=== PATIENT | male | born 1970 | race American Indian/Alaskan Native ===

== ENCOUNTER 2019-04-29 06:37 | Inpatient (IN) | payer BC, OTHER ==
[2019-04-29] MEDS ORDERED: HEPARIN 10,000 UNITS/10 ML IV ONE (06:46)
[2019-04-29] MEDS ORDERED: NACL 0.9% 1000 ML 1,000 ML IV ONE (06:46)
--- NOTE | 2019-04-29 06:52 | Emergency Department Report ---
HPI - General Time Seen by Provider: 04/29/19 06:43 - HPI HPI: 49-year-old -Irish male presents to the emergency department by EMS from home with complaint of midsternal to left-sided chest pain that started about 3 AM this morning and has been going on since. There is some mild shortness of breath, as well as nausea and vomiting, associated with his chest pain. The patient has a past medical history of coronary artery disease with previous IA and 2 stents placed. The most recent stent was placed in [place] in February of this year. He has a card that shows a stent placed in the LAD and the RCA. He also has a past medical history of hypertension and diabetes. He is a tobacco smoker but denies any illicit drug use. The patient received a full dose aspirin, sublingual nitroglycerin and a dose of morphine in route with EMS without much relief. A code STEMI has been called. ED Review of Systems ROS: Stated complaint: CHEST PAIN Other details as noted in HPI Comment: All other systems reviewed and negative Constitutional: denies: chills, fever Eyes: denies: eye pain, vision change ENT: denies: ear pain, throat pain Respiratory: shortness of breath. denies: cough Cardiovascular: chest pain. denies: edema Gastrointestinal: nausea, vomiting. denies: abdominal pain Genitourinary: denies: dysuria, discharge Musculoskeletal: denies: back pain, arthralgia Skin: denies: rash, lesions Neurological: denies: headache, weakness Physical Exam - Physical Exam Physical Exam: GENERAL: Patient appears uncomfortable and diaphoretic. HENT: Normocephalic. Atraumatic. Patient has moist mucous membranes. EYES: Extraocular motions are intact. Pupils equal reactive to light bilaterally. NECK: Supple. Trachea is midline. CHEST/LUNGS: Clear to auscultation. There is no respiratory distress noted. HEART/CARDIOVASCULAR: Regular. There is no tachycardia. There is no murmur. ABDOMEN: Abdomen is soft, nontender. Patient has normal bowel sounds. There is no abdominal distention. SKIN: Skin is warm. Patient is diaphoretic. NEURO: The patient is awake, alert, and oriented. The patient is cooperative. The patient has no focal neurologic deficits. The patient has normal speech. MUSCULOSKELETAL: There is no tenderness or deformity. There is no evidence of acute injury. ED Course - Consultations Consultation #1: The dull coat mill operator on-call, Dr. Rizo, has been notified and has seen the EKG. He agrees with the code STEMI and is on his way in to meet the cath team. 04/29/19 06:51 ED Medical Decision Making - Lab Data Result diagrams: 04/29/19 06:50 04/29/19 06:50 - EKG Data -: EKG Interpreted by Me EKG shows normal: sinus rhythm, axis (left axis deviation), intervals, QRS complexes (right bundle-branch block), ST-T waves (there is ST elevation to need to V2 and V3 with ST depressions in 2, 3, aVF) Rate: bradycardia (49 bpm) - EKG Data When compared to previous EKG there are: previous EKG unavailable Interpretation: acute IA - Radiology Data Radiology results: image reviewed interpreted by me: Chest x-ray does not show any acute process. There are no pleural effusions, obvious pneumonia and there is no pneumothorax. - Medical Decision Making Patient presents with some acute midsternal to left-sided chest pain. EKG showed concern for anterior ST elevation IA. Code STEMI call. Cardiology was contacted and came in for catheterization. In reviewing the patient's labs, he had some hyperglycemia but otherwise the labs have been unremarkable thus far. Chest x-ray did not show any acute process. The patient had multivessel disease with balloon angioplasty completed and will be admitted to the ICU to the medicine service. - Differential Diagnosis STEMI, PE, pneumonia, costochondritis Critical Care Time: Yes Critical care time in (mins) excluding proc time.: 31 Critical care attestation.: If time is entered above; I have spent that time in minutes in the direct care of this critically ill patient, excluding procedure time. Critical care time was spent on this patient during his initial evaluation, multiple re- evaluations, discussion with the cardiology service, interpretation of EKG, ordering of medications. Critical Care Time: 31 minutes ED Disposition Clinical Impression: Hyperglycemia Acute myocardial infarction Qualifiers: Myocardial infarction type: ST elevation myocardial infarction Involved coronary artery: unspecified coronary artery Qualified Code(s): I21.3 - ST elevation (STEMI) myocardial infarction of unspecified site STEMI (ST elevation myocardial infarction) Qualifiers: Involved coronary artery: unspecified coronary artery Qualified Code(s): I21.3 - ST elevation (STEMI) myocardial infarction of unspecified site Disposition: DC-09 OP ADMIT IP TO THIS HOSP Is pt being admited?: Yes Condition: Serious Time of Disposition: 07:30
[2019-04-29] MEDS ORDERED: HEPARIN/ 0.45% NACL-25,000 UNIT/500 ML 25,000 UNIT/500 ML BAG IV SCH (07:00)
[2019-04-29 07:05] LABS: Basophils # (Auto) 0.1 K/mm3 (0.0-0.1); Basophils % (Auto) 0.5 % (0.0-1.8); Eosinophils # (Auto) 0.2 K/mm3 (0.0-0.4); Eosinophils % (Auto) 1.7 % (0.0-4.3); Hematocrit 38.7 % (35.5-45.6); Hemoglobin 12.6 gm/dl (11.8-15.2); Lymphocytes # (Auto) 3.8 K/mm3 (1.2-5.4); Lymphocytes % (Auto) 26.7 % (13.4-35.0); Mean Corpuscular HGB Conc 33 % (32-34); Mean Corpuscular Volume 88 fl (84-94); Monocytes # (Auto) 0.5 K/mm3 (0.0-0.8); Monocytes % (Auto) 3.2 % (0.0-7.3); Platelet Count 230 K/mm3 (140-440); Red Blood Count 4.38 M/mm3 (3.65-5.03); Red Cell Distribution Width 13.7 % (13.2-15.2)
[2019-04-29 07:16] LABS: INR 1.07 (0.87-1.13)
[2019-04-29 07:17] LABS: Partial Thromboplastin Time 24.1 Sec. (24.2-36.6)
[2019-04-29] MEDS ORDERED: XYLOCAINE 2% INFILTRATI ONE (07:19)
[2019-04-29] MEDS ORDERED: HEPARIN/NS 5000 UNIT/500ML(CATH LAB) 1,000 ML IR ONE (07:19)
[2019-04-29] MEDS ORDERED: SUBLIMAZE ONE (07:19)
[2019-04-29] MEDS ORDERED: CALAN ONE (07:19)
[2019-04-29] MEDS ORDERED: NITROGLYCERIN SYRINGE 3 ML ONE (07:20)
[2019-04-29 07:30] LABS: Creatine Kinase MB 2.5 ng/mL (0.0-4.0)
[2019-04-29 07:31] LABS: BUN/Creatinine Ratio 17; Blood Urea Nitrogen 15 mg/dL (9-20); Calcium 9.3 mg/dL (8.4-10.2); Hemolysis Index 17
[2019-04-29] MEDS: VERSED ONE (07:34)
[2019-04-29] MEDS: HEPARIN 10,000 UNITS/10 ML ONE ×2 (07:38→08:42)
[2019-04-29] MEDS: AGGRASTAT DRIP (12.5 MG/250 ML) 12,500 MCG/250 ML BAG IV ONE ×2 (07:43→07:48)
[2019-04-29] MEDS ORDERED: ALUM-MAG HYDROX-SIMETH 200-200-20MG/5ML ONE (08:23)
[2019-04-29] MEDS ORDERED: PLAVIX ONE (08:23)
[2019-04-29] MEDS ORDERED: ZOFRAN IV PRN (08:37)
--- NOTE | 2019-04-29 08:48 | History and Physical Report ---
History of Present Illness Date of examination: 04/29/19 Date of admission: 04/29/2019 Chief complaint: chest pain History of present illness: 49-year-old male history of diabetes, hypertension, hyperlipidemia and coronary arterial disease patient had a PCI of his LAD in February 2019 patient states compliance with Plavix but not aspirin unclear reason w hy. Patient states having chest pain last night took sublingual nitroglycerin without relief midsternal pressure-like like his myocardial infarction similar type pain in the past. EKG by EMS shows sinus bradycardia with right bundle branch block and acute anterior wall VA. Patient denies any nausea or vomiting but shortness of breath. No palpitations no syncope no fever no chills. 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 Left heart cath revealed left main patent LAD proximal or ostial stents 100% circumflex large patent obtuse marginal 1. Obtuse marginal 2 large patent obtuse marginal 3 patent RCA dominant proximal mid patent distal 95% PDA PLB pat ent with mild LV dysfunction mild anterior wall hypokinesis with elevated left diastolic pressure. Balloon angioplasty of the LAD and diagonal with intravascular ultrasound with repeat ballooning of the proximal LAD with a noncompliant 3.25 x 15 mm. Restoring ANGEL-3 flow both LAD and diagonal. Billy hooper's chest pain has markedly improved Past History Past Medical History: acute VA, diabetes, hypertension, hyperlipidemia, other (tia) Past Surgical History: Other (cad) Social history: smoking. denies: alcohol abuse, prescription drug abuse, IV drug use Family history: denies: no significant family history Medications and Allergies Allergies Allergy/AdvReac Type Severity Reaction Status Date / Time Penicillins AdvReac Rash Verified 04/29/19 08:39 Active Meds: Active Medications Aspirin (Baby Aspirin) 81 mg PO QDAY [facility] Clopidogrel Bisulfate (Plavix) 75 mg PO QDAY [facility] Sodium Chloride (Nacl 0.9% 1000 Ml) 1,000 mls @ 75 mls/hr IV DIRECT EBER Stop: 04/29/19 16:59 Metoprolol Tartrate (Lopressor) 50 mg PO BID [facility] Ondansetron HCl (Zofran) 4 mg IV Q8H PRN PRN Reason: N/V unrelieved by Reglan Tramadol HCl (Ultram) 50 mg PO Q4H PRN PRN Reason: Pain, Mild (1-3) Review of Systems All systems: negative (as per hpi) Physical Examination Vital Signs Resp Pulse Ox 26 H 98 04/29/19 06:43 04/29/19 06:43 General appearance: well-nourished HEENT: Positive: PERRL, Mucus Membranes Moist Neck: Positive: neck supple, trachea midline Cardiac: Positive: Reg Rate and Rhythm, S1/S2, Audible Murmur Lungs: Positive: clear to auscultation, Normal Breath Sounds Neuro: Positive: Grossly Intact Abdomen: Positive: Soft, Active Bowel Sounds. Negative: Tender, Distended Male genitourinary: Positive: normal Skin: Positive: Clear Incision: Cardiac Cath Site (right radial site no hematoma) Musculoskeletal: No Pain, Normal Range of Motion Extremities: Present: normal. Absent: edema Results 04/29/19 06:50 04/29/19 06:50 Cardiac Enzymes 04/29/19 Range/Units 06:50 CK-MB (CK-2) 2.5 (0.0-4.0) ng/mL Coagulation 04/29/19 Range/Units 06:50 PT 13.6 (12.2-14.9) Sec. INR 1.07 (0.87-1.13) APTT 24.1 L (24.2-36.6) Sec. CBC 04/29/19 Range/Units 06:50 WBC 14.3 H (4.5-11.0) K/mm3 RBC 4.38 (3.65-5.03) M/mm3 Hgb 12.6 (11.8-15.2) gm/dl Hct 38.7 (35.5-45.6) % Plt Count 230 (140-440) K/mm3 Lymph # 3.8 (1.2-5.4) K/mm3 [place] # 0.5 (0.0-0.8) K/mm3 Eos # 0.2 (0.0-0.4) K/mm3 Baso # 0.1 (0.0-0.1) K/mm3 Comprehensive Metabolic Panel 04/29/19 Range/Units 06:50 Sodium 139 (137-145) mmol/L Potassium 3.9 (3.6-5.0) mmol/L Chloride 103.2 (98-107) mmol/L Carbon Dioxide 25 (22-30) mmol/L BUN 15 (9-20) mg/dL Creatinine 0.9 (0.8-1.5) mg/dL Glucose 350 H (75-100) mg/dL Calcium 9.3 (8.4-10.2) mg/dL - Imaging and Cardiology Cardiac cath: report reviewed (04/29/2019 Left heart cath revealed left main patent LAD proximal or ostial stents 100% circumflex large patent obtuse marginal 1. Obtuse marginal 2 large patent obtuse marginal 3 patent RCA dominant proximal mid patent distal 95% PDA PLB patent with mild LV dysfunction mild anterior wall hypokinesis with elevated left diastolic pressure. Balloon angioplasty of the LAD and diagonal with intravascular ultrasound with repeat ballooning of the proximal LAD with a noncompliant 3.25 x 15 mm. Restoring ANGEL-3 flow both LAD and diagonal. ) EKG interpretations - Telemetry EKG Rhythm: Sinus Rhythm (sinus bradycardia rbbb acute anterior wall mi) Assessment and Plan pt had poba and ivus of lad and post pci care, cont asa and plavix, aggrstat for 12 hours and iv fluids and lopressor and statin, admit to icu - Patient Problems (1) Acute myocardial infarction due to left coronary artery occlusion Status: Acute (2) Hypertension Status: Chronic Qualifiers: Hypertension type: essential hypertension Qualified Code(s): I10 - Essen tial (primary) hypertension (3) Acute systolic CHF (congestive heart failure), NYHA class 4 Status: Acute (4) Acute diastolic CHF (congestive heart failure), NYHA class 4 Status: Acute (5) Hyperlipemia, mixed Status: Acute (6) Smoker Status: Chronic (7) Diabetes mellitus Status: Chronic Qualifiers: Diabetes mellitus type: type 2 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
[2019-04-29] MEDS ORDERED: AGGRASTAT DRIP (12.5 MG/250 ML) 12,500 MCG/250 ML BAG IV SCH (09:00)
[2019-04-29] MEDS ORDERED: NACL 0.9% 1000 ML 1,000 ML IV SCH (09:00)
[2019-04-29] MEDS ORDERED: NACL 0.9% 500 ML 500 ML IV SCH (09:00)
[2019-04-29] MEDS ORDERED: D50W (25GM) Syringe IV PRN (09:00)
[2019-04-29] MEDS ORDERED: ULTRAM PO PRN (10:00)
--- NOTE | 2019-04-29 10:04 | XRay Report ---
CHEST 1 VIEW INDICATION / CLINICAL INFORMATION: Chest pain. COMPARISON: None available. FINDINGS: SUPPORT DEVICES: None. HEART / MEDIASTINUM: No significant abnormality. LUNGS / PLEURA: Mild interstitial prominence No pneumothorax. ADDITIONAL FINDINGS: No significant additional findings. IMPRESSION: Mild interstitial prominence, otherwise negative exam Signer Name: Porter Cardoza MD FACR Signed: 04/29/2019 10:00 AM Workstation Name: [id number]
[2019-04-29] MEDS: BABY ASPIRIN PO SCH (11:14)
[2019-04-29] MEDS: LOPRESSOR PO SCH ×2 (11:14→22:56)
--- NOTE | 2019-04-29 12:13 | Consultation ---
History of Present Illness Consult date: 04/29/19 Requesting physician: CARA BRANHAM Reason for consult: chest pain, other (STEMI s/p baloon angioplasty, Type 2 DM, ) History of present illness: 49-year-old male history of diabetes, hypertension, hy perlipidemia and coronary arterial disease patient had a PCI of his LAD in February 2019 patient states compliance with Plavix but not aspirin unclear reason why. Patient states having chest pain last night took sublingual nitroglycerin without relief midsternal pressure-like like his myocardial infarction similar type pain in the past. EKG by EMS shows sinus bradycardia with right bundle branch block and acute anterior wall NE. Patient denies any nausea or vomiting but shortness of breath. No palpitations no syncope no fever no chills. 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 Left heart cath revealed left main patent LAD proximal or ostial stents 100% circumflex large patent obtuse marginal 1. Obtuse marginal 2 large patent obtuse marginal 3 patent RCA dominant proximal mid patent distal 95% PDA PLB patent with mild LV dysfunction mild anterior wall hypokinesis with elevated left diastolic pressure. Balloon angioplasty of the LAD and diagonal with intravascular ultrasound with repeat ballooning of the proximal LAD with a noncompliant 3.25 x 15 mm. Restoring ANGEL-3 flow both LAD and diagonal. Patient's chest pain has markedly improved. He was admitted to the ICU, adn I have been consulted fro critical care management. Thank you for the consult. Patient was seen and examined. Vitals, labs, medications, chart reviewed. Vomited x1 this morning, denies any chest pain. Discussed with RN, patient's mother at the bedside REVIEW OF SYSTEMS Comment: All other systems reviewed and negative Constitutional: denies: chills, fever Eyes: denies: eye pain, vision change ENT: denies: ear pain, throat pain Respiratory: shortness of breath. denies: cough Cardiovascular: chest pain. denies: edema Gastrointestinal: nausea, vomiting. denies: abdominal pain Genitourinary: denies: dysuria, discharge Musculoskeletal: denies: back pain, arthralgia Skin: denies: rash, lesions Neurological: denies: headache, weakness Past History Past Medical History: acute [place], diabetes, hypertension, hyperlipidemia, other (tia) Past Surgical History: Other (cad) Social history: smoking. denies: alcohol abuse, prescription drug abuse, IV drug use Family history: denies: no significant family history Medications and Allergies Allergies Allergy/AdvReac Type Severity Reaction Status Date / Time Penicillins AdvReac Rash Verified 04/29/19 08:39 Active Meds: Active Medications Aspirin (Baby Aspirin) 81 mg PO QDAY [facility] Last Admin: 04/29/19 11:14 Dose: 81 mg Documented by: Atorvastatin Calcium (Lipitor) 80 mg PO QHS [facility] Clopidogrel Bisulfate (Plavix) 75 mg PO QDAY [facility] Dextrose (D50w (25gm) Syringe) 50 ml IV PRN PRN PRN Reason: Hypoglycemia Sodium Chloride (Nacl 0.9% 1000 Ml) 1,000 mls @ 42 mls/hr IV ONCE ONE Stop: 04/30/19 06:34 Last Admin: 04/29/19 06:54 Dose: 42 mls/hr Documented by: Sodium Chloride (Nacl 0.9% 1000 Ml) 1,000 mls @ 75 mls/hr IV DIRECT EBER Stop: 04/29/19 16:59 Tirofiban/Sodium Chloride (Aggrastat Drip (12.5 Mg/250 Ml)) 12,500 mcg in 250 mls @ 15 mls/hr IV DIRECT EBER; Protocol Stop: 04/30/19 18:00 Sodium Chloride (Nacl 0.9% 500 Ml) 500 mls @ 50 mls/hr IV DIRECT EBER Stop: 04/29/19 18:59 Insulin Human Lispro (Humalog) 0 unit SUB-Q ACHS [facility]; Protocol Metoprolol Tartrate (Lopressor) 50 mg PO BID [facility] Last Admin: 04/29/19 11:14 Dose: 50 mg Documented by: Ondansetron HCl (Zofran) 4 mg IV Q8H PRN PRN Reason: N/V unrelieved by Reglan Last Admin: 04/29/19 11:22 Dose: 4 mg Documented by: Tramadol HCl (Ultram) 50 mg PO Q4HR PRN PRN Reason: Pain, Mild (1-3) Physical Examination Vital signs: Vital Signs Resp Pulse Ox 26 H 98 04/29/19 06:43 04/29/19 06:43 Vitals reviewed General appearance: well-nourished HEENT: Positive: PERRL, Mucus Membranes Moist Neck: Positive: neck supple, trachea midline Cardiac: Positive: Reg Rate and Rhythm, S1/S2, Audible Murmur Lungs: Positive: clear to auscultation, Normal Breath Sounds Neuro: Positive: Grossly Intact Abdomen: Positive: Soft, Active Bowel Sounds. Negative: Tender, Distended Male genitourinary: Positive: normal Skin: Positive: Clear Incision: Cardiac Cath Site (right radial site no hematoma) Musculoskeletal: No Pain, Normal Range of Motion Extremities: Present: normal. Absent: edema Results - Laboratory Findings CBC and BMP: 04/29/19 06:50 04/29/19 06:50 PT/INR, D-dimer PT 13.6 Sec. (12.2-14.9) 04/29/19 06:50 INR 1.07 (0.87-1.13) 04/29/19 06:50 Abnormal lab findings: Abnormal Labs 04/29/19 04/29/19 04/29/19 06:50 06:50 06:50 WBC 14.3 H Seg Neutrophils # 9.7 H APTT 24.1 L Glucose 350 H POC Glucose Hemoglobin A1c 04/29/19 04/29/19 09:27 09:34 WBC Seg Neutrophils # APTT Glucose POC Glucose 296 H Hemoglobin A1c 9.0 H - Diagnostic Findings Chest x-ray: image reviewed (Increased interstitial marking, otherwise essentially normal CXR) Assessment and Plan (1) Acute myocardial infarction due to left coronary artery occlusion Status: Acute -per cardiology. Currenetly on aggrastat, will be taken back to hemodialysis lab technician in the morning. 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
[2019-04-29] MEDS: HumaLOG SUB-Q SCH ×3 (13:17→22:01)
[2019-04-29 14:31] LABS: Hematocrit 40.8 % (35.5-45.6); Hemoglobin 13.3 gm/dl (11.8-15.2)
--- NOTE | 2019-04-29 15:09 | Cardiac Catherization Report ---
LEFT HEART CATHETERIZATION AND PERCUTANEOUS CORONARY INTERVENTION AND INTRAVASCULAR ULTRASOUND REPORT. CLINICAL INFORMATION: This is a 49-year-old -[place] gentleman with history of known coronary artery disease in [place] in 02/2019, presents with chest pain since last night, took sublingual nitro without relief. EKG ____ shows ST elevation anteriorly with a right bundle. The patient states compliance with Plavix but not aspirin. He is a diabetic, hyperlipidemia. So, procedure was done under moderate sedation, started at 7:34 a.m., finished at 8:21 a.m. that is 47 minutes of moderate sedation. Procedure was done via the right radial artery, sterile technique, local anesthesia, 6-Burmese radial sheath inserted. LV gram was done first, which shows mild LV dysfunction, mild anterior wall hypokinesis. LVEDP of 35-40 mmHg, LV is 152. Aortic is 149/93 mmHg. No gradient across the aortic valve on pullback. RCA engaged with JR4 catheter, large dominant vessel, proximal to mid is patent, distal up to the bifurcation of 90% lesion, bifurcates into medium caliber PDA, PLV that are patent. Left system engaged with an EBU 3.5 catheter. Left main is large. LAD is ostial 100%. ANGEL 0 flow. Previous stents noted on fluoroscopy. Circ is large and dominant, is patent. Small OM1 is patent. OM2 is a large caliber vessel, patent. OM3 is a small caliber vessel, patent. PERCUTANEOUS CORONARY INTERVENTION OF THE LAD: 1. Engaged the left system with an EBU 3.5 catheter. 2. Crossed into the distal LAD with short [place]ona wire. 3. Ballooned with a 2.5 x 12 within the stent, restoring ANGEL 3, but heavy thrombus burden also noted in diagonal 1 stent also. 4. Wired the diagonal 1 with a Runthrough wire. 5. Ballooned the diagonal with a 2.0 x 12, x 3 inflations restoring ANGEL 3 flow in the diagonal. 6. Ballooned the mid to distal LAD with a 2.0 x 12 balloon because of thrombus and also into the distal apex, short balloon inflations because of thrombus. 7. An intravascular ultrasound showed 2 stents in the LAD, mild heavy plaque burden with mild apposition, so balloon within the stent in the proximal LAD with a noncompliant 3.25 x 15 mm at 18 atmospheres x 4 inflations. Excellent angiographic result, ANGEL 3 flow noted in the LAD and diagonal. Removed coronary wire. Multiple angiograms shows left main large patent. LAD proximal stent patent. Reduced stenosis from 100% down to 0, no thrombus noted at the end and diagonal 1 stent patent with no thrombus noted to small vessel distally at the distal apex and the distal diagonal. 8. 6-Burmese EBU catheter was taken over guidewire, 6-Burmese radial sheath was discontinued. Radial band applied. No hematoma, no bleeding. SUMMARY: Percutaneous balloon angioplasty, intravascular ultrasound of the LAD and diagonal with a 2.0 x 12 and LAD with a noncompliant 3.25 x 15 IVUS showed reference vessel 3.25 with stents noted and the patient's distal LAD is patent now. Circumflex is patent. OM1 patent. OM2 large patent. OM3 small patent. Mild LV dysfunction, elevated left end-diastolic pressure, mild systolic heart failure, so continue Aggrastat post-PCI care, aspirin, Plavix, urge the patient on compliance with medications, smoking cessation. We will do a staged PCI of the RCA. JOB# [id number] DELMY/NICOLÁS
[2019-04-29] MEDS ORDERED: TRIDIL DRIP 50MG/250ML 50 MG/250 ML BOTTLE IV SCH (20:00)
[2019-04-29] MEDS: PEPCID IV SCH ×2 (20:02→22:58)
[2019-04-30 03:08] LABS: Basophils # (Auto) 0.1 K/mm3 (0.0-0.1); Basophils % (Auto) 0.4 % (0.0-1.8); Hematocrit 39.5 % (35.5-45.6); Hemoglobin 12.8 gm/dl (11.8-15.2); Lymphocytes # (Auto) 1.2 K/mm3 (1.2-5.4); Lymphocytes % (Auto) 9.4 % (13.4-35.0); Mean Corpuscular HGB Conc 32 % (32-34); Mean Corpuscular Volume 88 fl (84-94); Monocytes # (Auto) 0.6 K/mm3 (0.0-0.8); Monocytes % (Auto) 4.7 % (0.0-7.3); Platelet Count 183 K/mm3 (140-440); Red Blood Count 4.49 M/mm3 (3.65-5.03); Red Cell Distribution Width 13.7 % (13.2-15.2)
[2019-04-30 03:27] LABS: Creatine Kinase MB 207.4 ng/mL (0.0-4.0)
[2019-04-30 03:34] LABS: BUN/Creatinine Ratio 25; Blood Urea Nitrogen 15 mg/dL (9-20); Calcium 9.4 mg/dL (8.4-10.2); Hemolysis Index 4
[2019-04-30 05:35] LABS: INR 1.12 (0.87-1.13)
[2019-04-30] MEDS ORDERED: PLAVIX ONE (08:24)
[2019-04-30] MEDS: PLAVIX PO SCH ×2 (08:25→14:33)
[2019-04-30] MEDS ORDERED: BABY ASPIRIN ONE (08:26)
[2019-04-30] MEDS: BABY ASPIRIN PO SCH ×2 (08:26→14:33)
[2019-04-30] MEDS ORDERED: HEPARIN/NS 5000 UNIT/500ML(CATH LAB) 1,000 ML IR ONE (08:27)
[2019-04-30] MEDS ORDERED: NITROGLYCERIN SYRINGE 3 ML ONE (08:28)
[2019-04-30] MEDS ORDERED: XYLOCAINE 2% INFILTRATI ONE (08:28)
[2019-04-30] MEDS ORDERED: CALAN ONE (08:28)
[2019-04-30] MEDS ORDERED: SUBLIMAZE ONE (08:35)
[2019-04-30] MEDS ORDERED: VERSED ONE (08:35)
[2019-04-30] MEDS ORDERED: NACL 0.9% 1000 ML 0 ML ONE (08:55)
[2019-04-30] MEDS: VERSED ONE (09:03)
[2019-04-30] MEDS: HEPARIN 10,000 UNITS/10 ML ONE ×2 (09:08→11:41)
[2019-04-30] MEDS ORDERED: LASIX ONE (09:14)
--- NOTE | 2019-04-30 09:46 | Progress Note ---
Assessment and Plan Patient's repeat heart catheterization today revealed patent left main patent LAD stent with 20% in-stent restenosis no thrombus diagnosed 1 stent patent circumflex. RCA patent previous cath had a distal RCA lesion and now is suspected thrombus as no longer present with moderate LV dysfunction echocardiogram patient had some shortness of breath and increased oxygenation when elevated left and diastolic pressure patient received 40 of Lasix intravenously during the cardiac cath. We'll put Lasix 40 daily along with Aldactone and lisinopril patient will continue beta josh therapy aspirin Plavix high-dose statin and discussed in detail about smoking cessation in detail with the patient. Patient have post cath care transferred to telemetry and check a.m. labs - Patient Problems (1) Acute myocardial infarction due to left coronary artery occlusion Current Visit: No Status: Acute (2) Hypertension Current Visit: No Status: Chronic Qualifiers: Hypertension type: essential hypertension Qualified Code(s): I10 - Essential (primary) hypertension (3) Acute systolic CHF (congestive heart failure), NYHA class 4 Current Visit: No Status: Acute (4) Acute diastolic CHF (congestive heart failure), NYHA class 4 Current Visit: No Status: Acute (5) Hyperlipemia, mixed Current Visit: No Status: Acute (6) Smoker Current Visit: No Status: Chronic (7) Diabetes mellitus Current Visit: No Status: Chronic Qualifiers: Diabetes mellitus type: type 2 Diabetes mellitus adjunct faculty for medical terminology insulin use: with jail use Diabetes mellitus complication status: with circulatory complication Diabetes mellitus complication detail: with other circulatory complications Qualified Code(s): E11.59 - Type 2 diabetes mellitus with other circulatory complications; Z79.4 - senior care (current) use of insulin Subjective Date of service: 04/30/19 Principal diagnosis: acute mi Interval history: pt chest pain free Objective Vital Signs Temp Pulse Pulse Pulse Resp Resp Resp 04/30/19 05:50 60 23 04/30/19 05:40 63 24 04/30/19 05:30 66 24 04/30/19 05:20 93 H 29 H 04/30/19 05:10 59 L 22 04/30/19 05:00 59 L 24 04/30/19 04:50 60 23 04/30/19 04:40 63 15 04/30/19 04:30 66 26 H 04/30/19 04:20 56 L 21 04/30/19 04:10 60 21 04/30/19 04:00 61 27 H 08/06/19 03:50 82 20 04/30/19 03:40 64 23 04/30/19 03:34 98.8 F 04/30/19 03:30 60 16 04/30/19 03:20 65 24 04/30/19 03:10 60 20 04/30/19 03:00 64 20 04/30/19 02:50 60 17 04/30/19 02:40 60 13 04/30/19 02:30 67 24 04/30/19 02:20 62 22 04/30/19 02:10 66 27 H 04/30/19 02:00 61 24 04/30/19 01:50 62 21 04/30/19 01:40 62 22 04/30/19 01:30 61 20 04/30/19 01:20 59 L 20 25 H 25 H 04/30/19 01:10 70 27 H 04/30/19 01:00 82 16 04/30/19 00:50 58 L 23 04/30/19 00:40 64 24 04/30/19 00:30 60 21 04/30/19 00:25 61 27 H 04/30/19 00:20 98.0 F 61 25 H 25 H 25 H 04/30/19 00:10 60 9 L 04/30/19 00:00 60 26 H 25 H 25 H 04/29/19 23:50 62 23 04/29/19 23:42 97.8 F 04/29/19 23:40 61 23 04/29/19 23:30 59 L 23 04/29/19 23:25 25 H 04/29/19 23:20 98.0 F 63 25 H 25 H 25 H 04/29/19 23:10 67 26 H 04/29/19 23:00 65 26 H 04/29/19 22:56 69 04/29/19 22:50 62 24 04/29/19 22:40 63 13 04/29/19 22:30 66 21 04/29/19 22:20 98.0 F 61 25 H 25 H 25 H 04/29/19 22:10 64 14 04/29/19 22:00 60 21 04/29/19 21:50 61 21 04/29/19 21:40 63 25 H 04/29/19 21:30 64 25 H 04/29/19 21:25 61 25 H 25 H 25 H 04/29/19 21:20 98.0 F 60 25 H 04/29/19 21:10 67 17 04/29/19 21:00 65 12 04/29/19 20:50 76 20 04/29/19 20:40 65 28 H 04/29/19 20:30 64 13 04/29/19 20:20 66 27 H 04/29/19 20:10 60 24 04/29/19 20:05 63 25 H 04/29/19 20:00 97.9 F 61 24 04/29/19 19:50 62 24 04/29/19 19:40 71 13 04/29/19 19:30 71 18 04/29/19 19:20 97.9 F 63 25 H 25 H 25 H 04/29/19 19:10 62 13 04/29/19 19:00 63 25 H 04/29/19 18:50 66 14 04/29/19 18:40 62 13 04/29/19 18:30 77 11 L 04/29/19 18:20 63 20 04/29/19 18:10 65 25 H 04/29/19 18:00 64 22 04/29/19 17:50 65 23 04/29/19 17:40 66 26 H 04/29/19 17:30 60 24 04/29/19 17:20 63 20 04/29/19 17:10 60 23 04/29/19 17:00 60 24 04/29/19 16:50 61 16 04/29/19 16:40 60 22 04/29/19 16:30 63 24 04/29/19 16:20 63 8 L 04/29/19 16:10 61 26 H 04/29/19 16:00 98.4 F 67 66 22 04/29/19 15:50 62 25 H 04/29/19 15:40 61 25 H 04/29/19 15:30 73 15 04/29/19 15:20 89 14 04/29/19 15:10 60 23 04/29/19 15:00 61 10 L 04/29/19 14:50 73 17 04/29/19 14:40 61 23 04/29/19 14:30 64 13 04/29/19 14:20 85 12 04/29/19 14:10 59 L 23 04/29/19 14:00 64 16 04/29/19 13:50 64 19 04/29/19 13:40 62 24 04/29/19 13:30 62 17 04/29/19 13:20 69 14 04/29/19 13:10 74 21 04/29/19 13:00 59 L 66 24 04/29/19 12:50 72 24 04/29/19 12:40 65 26 H 04/29/19 12:30 62 26 H 04/29/19 12:20 60 25 H 04/29/19 12:10 61 18 04/29/19 12:00 98.0 F 70 13 04/29/19 11:50 66 12 04/29/19 11:40 72 21 04/29/19 11:30 64 26 H 04/29/19 11:21 63 26 H 04/29/19 11:20 73 20 04/29/19 11:14 65 04/29/19 11:10 69 27 H 04/29/19 11:00 67 26 H 04/29/19 10:50 62 26 H 04/29/19 10:40 61 26 H 04/29/19 10:30 63 26 H 04/29/19 10:20 69 27 H 04/29/19 10:10 69 23 04/29/19 10:00 66 0 L 04/29/19 09:50 71 19 BP Pulse Ox 04/30/19 05:50 134/77 93 04/30/19 05:40 134/77 89 04/30/19 05:30 134/77 89 04/30/19 05:20 134/77 90 04/30/19 05:10 145/90 90 04/30/19 05:00 145/90 87 04/30/19 04:50 134/77 90 04/30/19 04:40 134/77 93 04/30/19 04:30 134/77 92 04/30/19 04:20 134/77 95 04/30/19 04:10 134/77 93 04/30/19 04:00 134/77 90 04/30/19 03:50 149/92 93 04/30/19 03:40 149/92 94 04/30/19 03:34 04/30/19 03:30 149/92 95 04/30/19 03:20 149/92 93 04/30/19 03:10 149/92 92 04/30/19 03:00 145/97 91 04/30/19 02:50 149/92 94 04/30/19 02:40 149/92 96 04/30/19 02:30 149/92 94 04/30/19 02:20 149/92 92 04/30/19 02:10 149/92 93 04/30/19 02:00 149/92 92 04/30/19 01:50 153/100 95 04/30/19 01:40 153/100 94 04/30/19 01:30 153/100 96 04/30/19 01:20 153/100 94 04/30/19 01:10 153/100 96 04/30/19 01:00 153/100 96 04/30/19 00:50 152/93 95 04/30/19 00:40 152/93 99 04/30/19 00:30 152/93 97 04/30/19 00:25 95 04/30/19 00:20 152/93 97 04/30/19 00:10 152/93 98 04/30/19 00:00 152/92 92 04/29/19 23:50 160/95 97 04/29/19 23:42 04/29/19 23:40 159/97 92 04/29/19 23:30 158/92 92 04/29/19 23:25 95 04/29/19 23:20 155/96 92 04/29/19 23:10 166/97 94 04/29/19 23:00 148/92 97 04/29/19 22:56 154/96 04/29/19 22:50 148/94 94 04/29/19 22:40 152/91 94 04/29/19 22:30 151/95 95 04/29/19 22:20 158/96 95 04/29/19 22:10 157/95 96 04/29/19 22:00 155/93 94 04/29/19 21:50 160/96 93 04/29/19 21:40 157/93 96 04/29/19 21:30 151/91 96 04/29/19 21:25 95 04/29/19 21:20 151/95 90 04/29/19 21:10 154/101 97 04/29/19 21:00 151/96 98 08/05/19 20:50 163/103 94 08/05/19 20:40 163/103 95 08/05/19 20:30 163/103 95 08/05/19 20:20 163/103 95 08/05/19 20:10 165/103 99 08/05/19 20:05 165/103 98 0805/19 20:00 172/106 94 08/05/19 19:50 160/97 97 08/05/19 19:40 160/97 98 08/05/19 19:30 160/97 94 08/05/19 19:20 160/97 95 08/05/19 19:10 160/97 98 08/05/19 19:00 159/98 94 08/05/19 18:50 172/98 93 08/05/19 18:40 172/98 94 08/05/19 18:30 172/98 93 0805/19 18:20 159/98 100 08/05/19 18:10 159/98 94 08/05/19 18:00 159/98 94 08/05/19 17:50 172/98 95 08/05/19 17:40 172/98 97 08/05/19 17:30 172/98 94 08/05/19 17:20 172/98 95 0805/19 17:10 172/98 97 08/05/19 17:00 172/98 97 08/05/19 16:50 136/97 85 0805/19 16:40 136/97 96 08/05/19 16:30 136/97 97 08/05/19 16:20 136/97 97 08/05/19 16:10 136/97 96 08/05/19 16:00 136/97 97 08/05/19 15:50 178/120 97 08/05/19 15:40 178/120 98 08/05/19 15:30 178/120 100 08/05/19 15:20 148/94 98 08/05/19 15:10 148/94 98 08/05/19 15:00 148/94 100 08/05/19 14:50 178/120 98 08/05/19 14:40 178/120 99 08/05/19 14:30 178/120 98 08/05/19 14:20 178/120 73 L 05/19 14:10 168/113 98 08/05/19 14:00 148/95 99 04/29/19 13:50 148/95 95 04/29/19 13:40 148/95 95 04/29/19 13:30 148/95 98 04/29/19 13:20 148/95 97 04/29/19 13:10 147/95 97 04/29/19 13:00 147/95 98 04/29/19 12:50 148/95 96 04/29/19 12:40 148/95 97 04/29/19 12:30 148/95 97 04/29/19 12:20 157/95 96 04/29/19 12:10 155/93 96 04/29/19 12:00 155/93 95 04/29/19 11:50 157/95 94 04/29/19 11:40 157/95 96 04/29/19 11:30 157/95 96 04/29/19 11:21 97 04/29/19 11:20 154/101 98 04/29/19 11:14 154/97 04/29/19 11:10 154/97 97 04/29/19 11:00 154/97 92 04/29/19 10:50 154/101 96 04/29/19 10:40 155/99 96 04/29/19 10:30 155/99 95 04/29/19 10:20 160/106 93 04/29/19 10:10 159/97 96 04/29/19 10:00 159/97 96 04/29/19 09:50 157/99 96 - Physical Examination General: No Apparent Distress HEENT: Positive: PERRL, Mucus Membranes Moist Neck: Positive: neck supple, trachea midline Cardiac: Positive: Reg Rate and Rhythm, Audible Murmur Lungs: Positive: Decreased Breath Sounds Neuro: Positive: Grossly Intact Abdomen: Positive: Soft, Active Bowel Sounds. Negative: Tender, Distended Skin: Positive: Clear Incision: Cardiac Cath Site (right radial site no hematoma) Musculoskeletal: No Pain, Normal Range of Motion Extremities: Present: normal. Absent: edema - Labs and Meds Cardiac Enzymes 04/30/19 Range/Units 03:00 CK-MB (CK-2) 207.4 H (0.0-4.0) ng/mL Coagulation 04/30/19 Range/Units 05:00 PT 14.1 (12.2-14.9) Sec. INR 1.12 (0.87-1.13) Lipids 04/29/19 Range/Units 20:18 Triglycerides 76 (2-149) mg/dL Cholesterol 129 (50-199) mg/dL HDL Cholesterol 43 (40-59) mg/dL Cholesterol/HDL Ratio 3.00 % CBC 04/29/19 04/30/19 Range/Units 14:21 03:00 WBC 13.1 H (4.5-11.0) K/mm3 RBC 4.49 (3.65-5.03) M/mm3 Hgb 13.3 12.8 (11.8-15.2) gm/dl Hct 40.8 39.5 (35.5-45.6) % Plt Count 210 183 (140-440) K/mm3 Lymph # 1.2 (1.2-5.4) K/mm3 [place] # 0.6 (0.0-0.8) K/mm3 Eos # 0.0 (0.0-0.4) K/mm3 Baso # 0.1 (0.0-0.1) K/mm3 Comprehensive Metabolic Panel 04/30/19 Range/Units 03:00 Sodium 144 (137-145) mmol/L Potassium 4.1 (3.6-5.0) mmol/L Chloride 106.2 (98-107) mmol/L Carbon Dioxide 26 (22-30) mmol/L BUN 15 (9-20) mg/dL Creatinine 0.6 L (0.8-1.5) mg/dL Glucose 262 H (75-100) mg/dL Calcium 9.4 (8.4-10.2) mg/dL - Imaging and Cardiology Echo: report reviewed (moderate lv dsyfunction ef 35-40% mild mr and mild tr ) Cardiac cath: report reviewed (04/29/2019 Left heart cath revealed left main patent LAD proximal or ostial stents 100% circumflex large patent obtuse marginal 1. Obtuse marginal 2 large patent obtuse marginal 3 patent RCA dominant proximal mid patent distal 95% PDA PLB patent with mild LV dysfunction mild anterior wall hypokinesis with elevated left diastolic pressure. Balloon a ngioplasty of the LAD and diagonal with intravascular ultrasound with repeat ballooning of the proximal LAD with a noncompliant 3.25 x 15 mm. Restoring ANGEL-3 flow both LAD and diagonal. ), other (04/30/2019 left main patent LAD proximal stent 20% in-stent restenosis rest of LAD patent diagonal one proximal stent patent circumflex patent obtuse marginal 1and 2 and 3 patent RCA patent PDA PLB patent moderate LV dysfunction) - Telemetry EKG Rhythm: Sinus Rhythm
--- NOTE | 2019-04-30 09:49 | Progress Note ---
Assessment and Plan (1) Acute myocardial infarction due to left coronary artery occlusion Status: Acute -per cardiology, s/p follow up cath this morning Cardioprotective measures Lifestyle modification discussed Antiplatelet therapy (2) Hypertension Status: Chronic Qualifiers: Hypertension type: essential hypertension Qualified Code(s): I10 - Essential (primary) hypertension Blood pressure control (3) Hyperlipemia, mixed Status: Acute (4) Smoker Status: Chronic -Smoking cessation counselling doen at the bedside Nicotine withdrawal precautions (5) Diabetes mellitus Status: Chronic Qualifiers: Diabetes mellitus type: type 2 Diabetes mellitus half-way insulin use: with rodent exterminator use Diabetes mellitus complication status: with circulatory complication Diabetes mellitus complication detail: with other circulatory complications Qualified Code(s): E11.59 - Type 2 diabetes mellitus with other circulatory complications; Z79.4 - emt intermediate (current) use of insulin -Start long acting insulin with sliding scale -Target blood glucose 140-160 mg/dL -Hold metformin Discharge planning per cardiology Subjective Date of service: 04/30/19 Principal diagnosis: acute mi Interval history: Patient's repeat heart catheterization today revealed patent left main patent LAD stent with 20% in-stent restenosis no thrombus diagnosed 1 stent patent circumflex. RCA patent previous cath had a distal RCA lesion and now is suspected thrombus as no longer present with moderate LV dysfunction echocardiogram patient had some shortness of breath and increased oxygenation when elevated left and diastolic pressure patient received 40 of Lasix intravenously during the cardiac cath. Objective - Exam Narrative Exam: General appearance: well-nourished HEENT: Positive: PERRL, Mucus Membranes Moist Neck: Positive: neck supple, trachea midline Cardiac: Positive: Reg Rate and Rhythm, S1/S2, Audible Murmur Lungs: Positive: clear to auscultation, Normal Breath Sounds Neuro: Positive: Grossly Intact Abdomen: Positive: Soft, Active Bowel Sounds. Negative: Tender, Distended Male genitourinary: Positive: normal Skin: Positive: Clear Incision: Cardiac Cath Site (right radial site no hematoma) Musculoskeletal: No Pain, Normal Range of Motion Extremities: Present: normal. Absent: edema Vital Signs - 12hr 04/29/19 04/29/19 04/29/19 21:50 22:00 22:10 Temperature Pulse Rate 61 60 64 Respiratory 21 21 14 Rate Respiratory Rate [Anterior Chest] Respiratory Rate [Left Foot ] Blood Pressure 160/96 155/93 157/95 O2 Sat by Pulse 93 94 96 Oximetry 04/29/19 04/29/19 04/29/19 22:20 22:30 22:40 Temperature 98.0 F Pulse Rate 61 66 63 Respiratory 25 H 21 13 Rate Respiratory 25 H Rate [Anterior Chest] Respiratory 25 H Rate [Left Foot ] Blood Pressure 158/96 151/95 152/91 O2 Sat by Pulse 95 95 94 Oximetry 04/29/19 04/29/19 04/29/19 22:50 22:56 23:00 Temperature Pulse Rate 62 69 65 Respiratory 24 26 H Rate Respiratory Rate [Anterior Chest] Respiratory Rate [Left Foot ] Blood Pressure 148/94 154/96 148/92 O2 Sat by Pulse 94 97 Oximetry 04/29/19 04/29/19 04/29/19 23:10 23:20 23:25 Temperature 98.0 F Pulse Rate 67 63 Respiratory 26 H 25 H 25 H Rate Respiratory 25 H Rate [Anterior Chest] Respiratory 25 H Rate [Left Foot ] Blood Pressure 166/97 155/96 O2 Sat by Pulse 94 92 95 Oximetry 04/29/19 04/29/19 04/29/19 23:30 23:40 23:42 Temperature 97.8 F Pulse Rate 59 L 61 Respiratory 23 23 Rate Respiratory Rate [Anterior Chest] Respiratory Rate [Left Foot ] Blood Pressure 158/92 159/97 O2 Sat by Pulse 92 92 Oximetry 04/29/19 04/30/19 04/30/19 23:50 00:00 00:10 Temperature Pulse Rate 62 60 60 Respiratory 23 26 H 9 L Rate Respiratory 25 H Rate [Anterior Chest] Respiratory 25 H Rate [Left Foot ] Blood Pressure 160/95 152/92 152/93 O2 Sat by Pulse 97 92 98 Oximetry 04/30/19 04/30/19 04/30/19 00:20 00:25 00:30 Temperature 98.0 F Pulse Rate 61 61 60 Respiratory 25 H 27 H 21 Rate Respiratory 25 H Rate [Anterior Chest] Respiratory 25 H Rate [Left Foot ] Blood Pressure 152/93 152/93 O2 Sat by Pulse 97 95 97 Oximetry 04/30/19 04/30/19 04/30/19 00:40 00:50 01:00 Temperature Pulse Rate 64 58 L 82 Respiratory 24 23 16 Rate Respiratory Rate [Anterior Chest] Respiratory Rate [Left Foot ] Blood Pressure 152/93 152/93 153/100 O2 Sat by Pulse 99 95 96 Oximetry 04/30/19 04/30/19 04/30/19 01:10 01:20 01:30 Temperature Pulse Rate 70 59 L 61 Respiratory 27 H 20 20 Rate Respiratory 25 H Rate [Anterior Chest] Respiratory 25 H Rate [Left Foot ] Blood Pressure 153/100 153/100 153/100 O2 Sat by Pulse 96 94 96 Oximetry 04/30/19 04/30/19 04/30/19 01:40 01:50 02:00 Temperature Pulse Rate 62 62 61 Respiratory 22 21 24 Rate Respiratory Rate [Anterior Chest] Respiratory Rate [Left Foot ] Blood Pressure 153/100 153/100 149/92 O2 Sat by Pulse 94 95 92 Oximetry 04/30/19 04/30/19 04/30/19 02:10 02:20 02:30 Temperature Pulse Rate 66 62 67 Respiratory 27 H 22 24 Rate Respiratory Rate [Anterior Chest] Respiratory Rate [Left Foot ] Blood Pressure 149/92 149/92 149/92 O2 Sat by Pulse 93 92 94 Oximetry 04/30/19 04/30/19 04/30/19 02:40 02:50 03:00 Temperature Pulse Rate 60 60 64 Respiratory 13 17 20 Rate Respiratory Rate [Anterior Chest] Respiratory Rate [Left Foot ] Blood Pressure 149/92 149/92 145/97 O2 Sat by Pulse 96 94 91 Oximetry 04/30/19 04/30/19 04/30/19 03:10 03:20 03:30 Temperature Pulse Rate 60 65 60 Respiratory 20 24 16 Rate Respiratory Rate [Anterior Chest] Respiratory Rate [Left Foot ] Blood Pressure 149/92 149/92 149/92 O2 Sat by Pulse 92 93 95 Oximetry 04/30/19 04/30/19 04/30/19 03:34 03:40 03:50 Temperature 98.8 F Pulse Rate 64 82 Respiratory 23 20 Rate Respiratory Rate [Anterior Chest] Respiratory Rate [Left Foot ] Blood Pressure 149/92 149/92 O2 Sat by Pulse 94 93 Oximetry 04/30/19 04/30/19 04/30/19 04:00 04:10 04:20 Temperature Pulse Rate 61 60 56 L Respiratory 27 H 21 21 Rate Respiratory Rate [Anterior Chest] Respiratory Rate [Left Foot ] Blood Pressure 134/77 134/77 134/77 O2 Sat by Pulse 90 93 95 Oximetry 04/30/19 04/30/19 04/30/19 04:30 04:40 04:50 Temperature Pulse Rate 66 63 60 Respiratory 26 H 15 23 Rate Respiratory Rate [Anterior Chest] Respiratory Rate [Left Foot ] Blood Pressure 134/77 134/77 134/77 O2 Sat by Pulse 92 93 90 Oximetry 04/30/19 04/30/19 04/30/19 05:00 05:10 05:20 Temperature Pulse Rate 59 L 59 L 93 H Respiratory 24 22 29 H Rate Respiratory Rate [Anterior Chest] Respiratory Rate [Left Foot ] Blood Pressure 145/90 145/90 134/77 O2 Sat by Pulse 87 90 90 Oximetry 04/30/19 04/30/19 04/30/19 05:30 05:40 05:50 Temperature Pulse Rate 66 63 60 Respiratory 24 24 23 Rate Respiratory Rate [Anterior Chest] Respiratory Rate [Left Foot ] Blood Pressure 134/77 134/77 134/77 O2 Sat by Pulse 89 89 93 Oximetry CBC and BMP: 05/01/19 05:00 05/01/19 05:00 ABG, PT/INR, D-dimer: PT/INR, D-dimer PT 14.1 Sec. (12.2-14.9) 04/30/19 05:00 INR 1.12 (0.87-1.13) 04/30/19 05:00 Abnormal lab findings: Abnormal Labs 04/29/19 04/29/19 04/29/19 06:50 06:50 06:50 WBC 14.3 H Lymph % (Auto) Seg Neutrophils % Seg Neutrophils # 9.7 H APTT 24.1 L Creatinine Glucose 350 H POC Glucose Hemoglobin A1c Total Creatine Kinase CK-MB (CK-2) CK-MB (CK-2) Rel Index Troponin T [facility] 04/29/19 04/29/19 04/29/19 09:27 09:34 11:56 WBC Lymph % (Auto) Seg Neutrophils % Seg Neutrophils # APTT Creatinine Glucose POC Glucose 296 H 273 H Hemoglobin A1c 9.0 H Total Creatine Kinase CK-MB (CK-2) CK-MB (CK-2) Rel Index Troponin T T[facility] 04/29/19 04/29/19 04/29/19 16:06 20:18 22:01 WBC Lymph % (Auto) Seg Neutrophils % Seg Neutrophils # APTT Creatinine Glucose POC Glucose 406 H 247 H Hemoglobin A1c Total Creatine Kinase CK-MB (CK-2) CK-MB (CK-2) Rel Index Troponin T 7.290 H* D TSH 04/30/19 04/30/19 04/30/19 00:48 03:00 03:00 WBC 13.1 H Lymph % (Auto) 9.4 L Seg Neutrophils % 85.5 H Seg Neutrophils # 11.2 H APTT Creatinine 0.6 L Glucose 262 H POC Glucose Hemoglobin A1c Total Creatine Kinase 2295 H CK-MB (CK-2) 207.4 H CK-MB (CK-2) Rel Index 9.0 H Troponin T 5.030 H* D TSH 0.247 L 04/30/19 05:44 WBC Lymph % (Auto) Seg Neutrophils % Seg Neutrophils # APTT Creatinine Glucose POC Glucose 242 H Hemoglobin A1c Total Creatine Kinase CK-MB (CK-2) CK-MB (CK-2) Rel Index Troponin T TSH
--- NOTE | 2019-04-30 10:07 | Cardiac Catherization Report ---
LEFT HEART CATHETERIZATION CLINICAL INFORMATION: This is a 49-year-old -[place] gentleman who presented yesterday with late presentation of acute myocardial infarction, had a balloon angioplasty of the LAD and diagonal for thrombus and was placed on Aggrastat. The patient had suspected distal RCA lesion at 90%. He was brought back here for another repeat left heart catheterization, echocardiogram, moderate LV dysfunction. Then patient was done under moderate sedation. Start sedation time 9:04 a.m., finished 9:19, 50 minutes moderate sedation. Procedure was done via the right radial artery, sterile technique, local anesthesia, 6-[place]ese radial sheath inserted. Left system engaged with JL3.5 catheter, which revealed left main large and patent, bifurcates to medium caliber LAD stent is patent with 20% in-stent restenosis, ANGEL 3 flow. Rest of LAD is patent, becomes small caliber at the apex with disease. Diagonal 1 proximal stent is patent, medium caliber vessel. Circumflex and AV groove is a large caliber vessel, patent. OM1 is a small to medium caliber and patent. OM2 is a large caliber vessel, patent. OM3 is a small to medium caliber and patent. RCA engaged with JR4 catheter, is a large dominant vessel engaged with JR4 guide and it is patent from proximally and distally. The distal stenosis that was noted prior was thrombus, it is no longer present and PDA, PLV are patent. LV gram done in UKRAINIAN and STODDARD view shows moderate LV dysfunction, EF 40%. LVEDP at 35 mmHg, LV is 134. Aortic is 132/86. No gradient across the aortic valve on pullback. 5 6-Taiwanese catheters were taken over guidewire, 6-[place]aiwanese radial sheath was discontinued. Radial band applied. No hematoma, no bleeding. SUMMARY: Left main patent, LAD proximal stent patent with 20% in-stent restenosis. Diagonal 1 stent patent. Circumflex is a large and patent. OM1, 2, and 3 are patent. RCA is patent. There is no distal stenosis anymore and prior thrombus in nature that has resolved and PDA, PLV are patent with moderate LV dysfunction. The patient will be treated medically. [facility]# [id number] [place]
[2019-04-30] MEDS: HumaLOG SUB-Q SCH ×4 (11:28→22:31)
[2019-04-30] MEDS ORDERED: HumaLOG SUB-Q ONE (11:28)
[2019-04-30] MEDS: PEPCID PO SCH ×2 (11:32→22:27)
[2019-04-30] MEDS: ZESTRIL PO SCH (11:32)
[2019-04-30] MEDS: LASIX PO SCH (11:33)
[2019-04-30] MEDS: ALDACTONE PO SCH (11:33)
[2019-04-30] MEDS: LOPRESSOR PO SCH ×2 (14:33→22:27)
[2019-04-30] MEDS ORDERED: TYLENOL PO ONE (19:00)
[2019-05-01 05:54] LABS: Alanine Aminotransferase 65 units/L (7-56); BUN/Creatinine Ratio 20; Blood Urea Nitrogen 14 mg/dL (9-20); Calcium 8.3 mg/dL (8.4-10.2); Hemolysis Index 6
[2019-05-01 06:50] LABS: Hematocrit 37.3 % (35.5-45.6); Hemoglobin 12.1 gm/dl (11.8-15.2)
[2019-05-01] MEDS: HumaLOG SUB-Q SCH ×2 (08:24→13:16)
--- NOTE | 2019-05-01 09:28 | Progress Note ---
Assessment and Plan pt has hypokalemia, add kcl today, cont current meds, discuss about lv dsyfunction and need to compliant with med and fluid restriction and smoking cessation and discharge today restart dm monday - Patient Problems (1) Acute myocardial infarction due to left coronary artery occlusion Current Visit: No Status: Acute (2) Hypertension Current Visit: No Status: Chronic Qualifiers: Hypertension type: essential hypertension Qualified Code(s): I10 - Essential (primary) hypertension (3) Acute systolic CHF (congestive heart failure), NYHA class 4 Current Visit: No Status: Acute (4) Acute diastolic CHF (congestive heart failure), NYHA class 4 Current Visit: No Status: Acute (5) Hyperlipemia, mixed Current Visit: No Status: Acute (6) Smoker Current Visit: No Status: Chronic (7) Diabetes mellitus Current Visit: No Status: Chronic Qualifiers: Diabetes mellitus type: type 2 Diabetes mellitus meterman insulin use: with meterman use Diabetes mellitus complication status: with circulatory complication Diabetes mellitus complication detail: with other circulatory complications Qualified Code(s): E11.59 - Type 2 diabetes mellitus with other circulatory complications; Z79.4 - watermaster (current) use of insulin Subjective Date of service: 05/01/19 Principal diagnosis: acute mi Interval history: pt ambulating without sob Objective Vital Signs Temp Pulse Pulse Resp BP Pulse Ox 05/01/19 08:42 99.2 F 66 18 101/68 97 05/01/19 07:30 96 05/01/19 04:07 98.0 F 79 18 95/60 93 04/30/19 23:53 68.0 F L 75 18 92/55 91 04/30/19 22:27 85 113/66 04/30/19 22:20 85 18 94 04/30/19 20:18 18 04/30/19 19:59 94 04/30/19 19:46 99.4 F 85 18 113/66 93 04/30/19 19:23 93 H 04/30/19 18:06 101.6 F H 104 H 20 117/70 92 04/30/19 15:13 19 95 04/30/19 13:30 88 19 128/85 95 04/30/19 13:00 83 20 127/85 94 04/30/19 12:30 82 20 127/81 95 04/30/19 12:00 80 22 142/88 94 04/30/19 11:33 74 137/93 04/30/19 11:32 69 137/93 04/30/19 11:30 81 25 H 137/93 93 04/30/19 11:00 74 26 H 144/89 94 04/30/19 10:30 91 H 14 138/90 96 04/30/19 10:15 81 27 H 128/86 96 04/30/19 10:00 76 27 H 130/89 96 04/30/19 09:45 73 20 127/82 94 04/30/19 09:40 98.7 F 72 22 123/81 94 - Physical Examination General: No Apparent Distress HEENT: Positive: PERRL, Mucus Membranes Moist Neck: Positive: neck supple, trachea midline Cardiac: Positive: Reg Rate and Rhythm Lungs: Positive: clear to auscultation Neuro: Positive: Grossly Intact Abdomen: Positive: Soft, Active Bowel Sounds. Negative: Tender, Distended Skin: Positive: Clear Incision: Cardiac Cath Site (right radial site no hematoma) Musculoskeletal: No Pain, Normal Range of Motion Extremities: Present: normal. Absent: edema - Labs and Meds Cardiac Enzymes 05/01/19 Range/Units 05:00 AST 69 H (5-40) units/L CBC 05/01/19 Range/Units 05:00 Hgb 12.1 (11.8-15.2) gm/dl Hct 37.3 (35.5-45.6) % Plt Count 155 (140-440) K/mm3 Comprehensive Metabolic Panel 05/01/19 Range/Units 05:00 Sodium 140 (137-145) mmol/L Potassium 3.3 L (3.6-5.0) mmol/L Chloride 101.6 (98-107) mmol/L Carbon Dioxide 28 (22-30) mmol/L BUN 14 (9-20) mg/dL Creatinine 0.7 L (0.8-1.5) mg/dL Glucose 200 H (75-100) mg/dL Calcium 8.3 L (8.4-10.2) mg/dL AST 69 H (5-40) units/L ALT 65 H (7-56) units/L Alkaline Phosphatase 65 (35-129) units/L Total Protein 6.2 L (6.3-8.2) g/dL Albumin 3.0 L (3.9-5) g/dL - Imaging and Cardiology Echo: report reviewed (moderate lv dsyfunction ef 35-40% mild mr and mild tr ) Cardiac cath: report reviewed (04/29/2019 Left heart cath revealed left main patent LAD proximal or ostial stents 100% circumflex large patent obtuse marginal 1. Obtuse marginal 2 large patent obtuse marginal 3 patent RCA dominant proximal mid patent distal 95% PDA PLB patent with mild LV dysfunction mild anterior wall hypokinesis with elevated left diastolic pressure. Balloon angioplasty of the LAD and diagonal with intravascular ultrasound with repeat ballooning of the proximal LAD with a noncompliant 3.25 x 15 mm. Restoring ANGEL-3 flow both LAD and diagonal. ), other (04/30/2019 left main patent LAD proximal stent 20% in-stent restenosis rest of LAD patent diagonal one proximal stent patent circumflex patent obtuse marginal 1and 2 and 3 patent RCA patent PDA PLB patent moderate LV dysfunction) - Telemetry EKG Rhythm: Sinus Rhythm
--- NOTE | 2019-05-01 09:56 | Discharge Summary ---
<ERASMO BLUNT - Last Filed: 05/01/19 10:53> Providers - Providers Date of Admission: 04/29/19 09:12 Date of discharge: 05/01/19 Attending physician: CARA BRANHAM 04/29/19 Consult to Cardiac Rehabilitation [CONS] Routine Reason For Exam: post pci 04/29/19 08:43 Consult to Physician [CONS] Routine Comment: Review MD notes, Dr. Portia harris 04/29/2019 1213 Consulting Provider: KULDIP BROUSSARD Physician Instructions: Reason For Exam: post mi 04/30/19 09:40 Consult to Cardiac Rehabilitation [CONS] Routine Reason For Exam: Cardiac Rehab Evaluation 04/30/19 09:46 Consult to Case Management [CONS] Routine Services Needed at Discharge: Other Notified:: case management Comment:: post mi, lack of insurance, needs HCFS, Additional Physician Instructions: pt has moderate lv dsyfunction with acute systolic heart failure Primary care physician: SULFURIC [employer]ANT OPERATOR Hospitalization Reason for admission: STEMI Condition: Stable Pertinent studies: [facility] with PCI and echo - see reports Procedures: [facility] with PCI and echo - see reports Hospital course: 49-year-old male history of diabetes, hypertension, hyperlipidemia and coronary arterial disease patient had a PCI of his LAD in February 2019 patient states compliance with Plavix but not aspirin unclear reason why. Patient presented on 04/29 with c/o chest pain since the evening prior to presentation, took sublingual nitroglycerin without relief midsternal pressure- like like his myocardial infarction similar type pain in the past. EKG by EMS shows sinus bradycardia with right bundle branch block and acute anterior wall IA. Patient denied any nausea or vomiting but shortness of breath. No palpitations no syncope no fever no chills. on 04/29/2019 patient was brought emergently to the cardiac Communication Technician for acute IA protocol. Left heart cath revealed left main patent LAD proximal or ostial stents 100% circumflex large patent obtuse marginal 1. Obtuse marginal 2 large patent obtuse marginal 3 patent RCA dominant proximal mid patent distal 95% PDA PLB patent with mild LV dysfunction mild anterior wall hypokinesis with elevated left diastolic pressure. Balloon angioplasty of the LAD and diagonal with intravascular ultrasound with repeat ballooning of the proximal LAD with a noncompliant 3.25 x 15 mm. Restoring ANGEL-3 flow both LAD and diagonal. Patient's chest pain markedly improved following PCI. On 04/30, pt taken for repeat heart catheterization which revealed patent left main patent LAD stent with 20% in- stent restenosis no thrombus diagnosed 1 stent patent circumflex. RCA patent previous cath had a distal RCA lesion and now is suspected thrombus as no longer present with moderate LV dysfunction echocardiogram patient had some shortness of breath and increased oxygenation when elevated left and diastolic pressure patient received 40 of Lasix intravenously during the cardiac cath. He was initiated on PO Lasix 40 daily along with Aldactone and lisinopril, will continue beta josh therapy aspirin Plavix high-dose statin and discussed in detail about smoking cessation in detail with the patient. Pt is medically stable for discharge home today. He was noted to have intermittent fever with mild leukocytosis and thus will be initiated on Zithromax empirically. Disposition: DC- TO HOME OR SELFCARE - Discharge Diagnoses (1) Acute myocardial infarction due to left coronary artery occlusion Status: Acute (2) Hypertension Status: Chronic Qualifiers: Hypertension type: essential hypertension Qualified Code(s): I10 - Essential (primary) hypertension (3) Acute systolic CHF (congestive heart failure), NYHA class 4 Status: Acute (4) Acute diastolic CHF (congestive heart failure), NYHA class 4 Status: Acute (5) Hyperlipemia, mixed Status: Chronic (6) Diabetes mellitus Status: Chronic Qualifiers: Diabetes mellitus type: type 2 Diabetes mellitus continuous churn buttermaker insulin use: with jail use Diabetes mellitus complication status: with circulatory complication Diabetes mellitus complication detail: with other circulatory complications Qualified Code(s): E11.59 - Type 2 diabetes mellitus with other circulatory complications; Z79.4 - MCC (current) use of insulin (7) Smoker Status: Chronic Core Measure Documentation - Palliative Care Palliative Care/ Comfort Measures: Not Applicable - Core Measures Any of the following diagnoses?: acute IA - Acute IA Discharge Requirements Aspirin at discharge: Yes MARYANN/ARB for LVSD if EF <40%: Yes Beta josh at discharge: Yes Statin for LDL = or >100 mg/dl on DC: Yes Exam - Constitutional Vitals: Temp Pulse Resp BP Pulse Ox 99.2 F 66 18 101/68 97 05/01/19 08:42 05/01/19 08:42 05/01/19 08:42 05/01/19 08:42 05/01/19 08:42 General appearance: Present: no acute distress - EENT Eyes: Present: PERRL, EOM intact ENT: hearing intact, clear oral mucosa, dentition normal - Neck Neck: Present: supple, normal ROM - Respiratory Respiratory effort: normal Respiratory: bilateral: CTA - Cardiovascular Rhythm: regular Heart Sounds: Present: S1 & S2 - Extremities Extremities: no ischemia, pulses intact, pulses symmetrical Peripheral Pulses: within normal limits - Abdominal General gastrointestinal: Present: soft, non-tender - Integumentary Integumentary: Present: clear, warm, dry - Musculoskeletal Musculoskeletal: strength equal bilaterally - Psychiatric Psychiatric: appropriate mood/affect Plan Activity: advance as tolerated Diet: low fat, low cholesterol, low salt, diabetic Wound: open to air, keep clean and dry, per your surgeon's advice Special Instructions: smoking cessation Follow up with: PRIMARY CARE, [Primary Care Provider] - 3-5 Days CARA BRANHAM MD [Staff Physician] - 7 Days ([facility], 05/13/2019 @ 9:00AM) Forms: [facility] PCI D/C Instructions Prescriptions: AtorvaSTATin [Lipitor] 80 mg PO QHS #90 tablet Spironolactone [Aldactone] 25 mg PO QDAY #90 tablet Furosemide [Lasix TAB] 40 mg PO QDAY #90 tablet Metoprolol [Lopressor TAB] 50 mg PO BID #180 tablet Plavix 75 mg PO DAILY #90 Lisinopril [Zestril TAB] 10 mg PO QDAY #90 tablet Azithromycin [Zithromax] 250 mg PO QDAY 5 Days tablet <CARA BRANHAM - Last Filed: 05/02/19 08:49> Providers - Providers Date of Admission: 04/29/19 09:12 Attending physician: CARA BRANHAM 04/29/19 Consult to Cardiac Rehabilitation [CONS] Routine Reason For Exam: post pci 04/29/19 08:43 Consult to Physician [CONS] Routine Comment: Review MD notes, Dr. Portia sarkaru 04/29/2019 1213 Consulting Provider: KULDIP BROUSSARD Physician Instructions: Reason For Exam: post mi 04/30/19 09:40 Consult to Cardiac Rehabilitation [CONS] Routine Reason For Exam: Cardiac Rehab Evaluation 04/30/19 09:46 Consult to Case Management [CONS] Routine Services Needed at Discharge: Other Notified:: case management Comment:: post mi, lack of insurance, needs HCFS, Additional Physician Instructions: pt has moderate lv dsyfunction with acute systolic heart failure Primary care physician: SULFURIC AC[employer] PLANT OPERATOR Hospitalization - Discharge Diagnoses (1) Acute myocardial infarction due to left coronary artery occlusion Status: Acute (2) Hypertension Status: Chronic Qualifiers: Hypertension type: essential hypertension Qualified Code(s): I10 - Essential (primary) hypertension (3) Acute systolic CHF (congestive heart failure), NYHA class 4 Status: Acute (4) Acute diastolic CHF (congestive heart failure), NYHA class 4 Status: Acute (5) Hyperlipemia, mixed Status: Chronic (6) Smoker Status: Chronic (7) Diabetes mellitus Status: Chronic Qualifiers: Diabetes mellitus type: type 2 Diabetes mellitus continuous churn buttermaker insulin use: with jail use Diabetes mellitus complication status: with circulatory complication Diabetes mellitus complication detail: with other circulatory complications Qualified Code(s): E11.59 - Type 2 diabetes mellitus with other circulatory complications; Z79.4 - MCC (current) use of insulin Core Measure Documentation - Core Measures Any of the following diagnoses?: acute IA - Acute IA Discharge Requirements Aspirin at discharge: Yes - Heart Failure Discharge Requirements Beta josh at discharge: Yes Exam - Constitutional Vitals: Temp Pulse Resp BP Pulse Ox 97.9 F 69 18 92/59 96 05/01/19 15:38 05/01/19 15:38 05/01/19 15:38 05/01/19 15:38 05/01/19 15:38
[2019-05-01] MEDS ORDERED: K-DUR PO SCH (10:00)
[2019-05-01] MEDS: PEPCID PO SCH (10:23)
[2019-05-01] MEDS: PLAVIX PO SCH (10:23)
[2019-05-01] MEDS: BABY ASPIRIN PO SCH (10:23)
[2019-05-01] MEDS: LASIX PO SCH (10:23)
[2019-05-01] MEDS: LOPRESSOR PO SCH (10:23)
[2019-05-01] MEDS: ZESTRIL PO SCH (10:24)
[2019-05-01] MEDS: ALDACTONE PO SCH ×2 (10:24→10:43)
[2019-05-01] MEDS ORDERED: ZITHROMAX PO ONE (10:52)
[2019-05-01 16:17] VITALS: BP 92/59
== END 2019-05-01 17:12 | disposition home or self-care (01) | DRG 250 ==
LOC: ED 06:37 → CC1 09:12 → 4A 04-30 10:11
PROVIDERS: ADMIT Internal Medicine; ATTEND Internal Medicine
PROC: 4A023N7 Measurement of Cardiac Sampling and Pressure, Left Heart, Percutaneous Approach (ICD-10-PCS; principal; 2019-04-29)
PROC: 02703ZZ Dilation of Coronary Artery, One Artery, Percutaneous Approach (ICD-10-PCS; 2019-04-29)
PROC: B2111ZZ Fluoroscopy of Multiple Coronary Arteries using Low Osmolar Contrast (ICD-10-PCS; 2019-04-29)
PROC: B2151ZZ Fluoroscopy of Left Heart using Low Osmolar Contrast (ICD-10-PCS; 2019-04-29)
PROC: B241ZZ3 Ultrasonography of Multiple Coronary Arteries, Intravascular (ICD-10-PCS; 2019-04-29)
PROC: 3E073PZ Introduction of Platelet Inhibitor into Coronary Artery, Percutaneous Approach (ICD-10-PCS; 2019-04-30)
PROC: 4A023N7 Measurement of Cardiac Sampling and Pressure, Left Heart, Percutaneous Approach (ICD-10-PCS; 2019-04-30)
PROC: B2111ZZ Fluoroscopy of Multiple Coronary Arteries using Low Osmolar Contrast (ICD-10-PCS; 2019-04-30)
PROC: B2151ZZ Fluoroscopy of Left Heart using Low Osmolar Contrast (ICD-10-PCS; 2019-04-30)
DX: I21.09 ST elevation (STEMI) myocardial infarction involving other coronary artery of anterior wall (principal); I50.43 Acute on chronic combined systolic (congestive) and diastolic (congestive) heart failure; T82.855A Stenosis of coronary artery stent, initial encounter; I25.10 Atherosclerotic heart disease of native coronary artery without angina pectoris; I11.0 Hypertensive heart disease with heart failure; I45.10 Unspecified right bundle-branch block; E78.2 Mixed hyperlipidemia; E11.59 Type 2 diabetes mellitus with other circulatory complications; F17.200 Nicotine dependence, unspecified, uncomplicated; E11.65 Type 2 diabetes mellitus with hyperglycemia; Y83.2 Surgical operation with anastomosis, bypass or graft as the cause of abnormal reaction of the patient, or of later complication, without mention of misadventure at the time of the procedure; Z79.4 Long term (current) use of insulin; Z88.0 Allergy status to penicillin; Z86.73 Personal history of transient ischemic attack (TIA), and cerebral infarction without residual deficits; Y92.89 Other specified places as the place of occurrence of the external cause
CPT/HCPCS: 36415; 71045; 80048; 80053; 80061; 82550; 82553; 82962; 83036; 84439; 84443; 84484; 85014; 85018; 85025; 85049; 85347; 85610; 85730; 86850; 86900; 86901; 92920; 92921; 92978; 93005; 93010; 93306; 93454; 93458; 94760; 96372; 99406; G0378; A9270-GY; C1725; C1753; C1769; C1887; C1894; J1644; J1815; J1940; J2250; J2405; J3010; J3246; J7030; Q9967

== ENCOUNTER 2019-08-10 21:52 | Observation (INO) | payer OTHER ==
[2019-08-10] MEDS ORDERED: ASPIRIN 325 MG TAB PO ONE (22:10)
[2019-08-10 22:52] LABS: Basophils # (Auto) 0.1 K/mm3 (0.0-0.1); Basophils % (Auto) 0.9 % (0.0-1.8); Eosinophils # (Auto) 0.3 K/mm3 (0.0-0.4); Eosinophils % (Auto) 3.3 % (0.0-4.3); Hematocrit 41.6 % (35.5-45.6); Hemoglobin 13.5 gm/dl (11.8-15.2); Lymphocytes # (Auto) 2.5 K/mm3 (1.2-5.4); Lymphocytes % (Auto) 30.4 % (13.4-35.0); Mean Corpuscular HGB Conc 33 % (32-34); Mean Corpuscular Volume 88 fl (84-94); Monocytes # (Auto) 0.7 K/mm3 (0.0-0.8); Monocytes % (Auto) 8.2 % (0.0-7.3); Red Blood Count 4.75 M/mm3 (3.65-5.03); Red Cell Distribution Width 13.4 % (13.2-15.2)
--- NOTE | 2019-08-10 22:55 | Emergency Department Report ---
ED Chest Pain HPI - General Chief Complaint: Chest Pain Stated Complaint: CP Time Seen by Provider: 08/10/19 22:34 Source: patient, EMS Mode of arrival: Stretcher Limitations: No Limitations - History of Present Illness Initial Comments: 49-year-old male, history of diabetes, hypertension, CAD with stents, CHF, presents to ED with chest pain. Patient reports intermittent chest pain over the last 2 days, worsening this evening. Reports left-sided pressure with tingling in the left arm. Patient reports taking aspirin and nitroglycerin at home. States pain became worse so decided to come to the emergency room. Patient reports some shortness of breath, but states he is "always short of breath." Patient reports associated nausea, with one episode of emesis prior to EMS arrival. Patient denies diaphoresis, but states he became "hot all over." Patient reports resolution of chest pain at this time. Patient had stent placed at this facility 3 months ago. Has not followed up with cardiology since he was discharged. Patient reports he has been, at times, noncompliant with his medications, including Plavix. States he restarted his Plavix approx 10 days ago after not taking it for one month. Patient reports continued tobacco use. MD Complaint: chest pain -: This evening Onset: during rest Pain Location: left chest Pain Radiation: LUE Severity: moderate Severity scale (0 -10): 6 Quality: heaviness Consistency: intermittent, now resolved Improves With: nitroglycerin Worsens With: nothing re: nausea, vomting Treatments Prior to Arrival: aspirin, nitroglycerin - Related Data Home Medications Medication Instructions Recorded Confirmed Last Taken Aspirin 81 mg PO DAILY 04/29/19 08/11/19 Unknown Nitroglycerin [Nitrostat] 0.4 mg SL Q5M PRN 04/29/19 08/11/19 Unknown glyBURIDE-Metformin 1.25-250 mg 500 mg PO BID 04/29/19 08/11/19 Unknown Previous Rx's Medication Instructions Recorded Last Taken Type Aspirin [Aspirin BABY CHEW TAB] 81 mg PO QDAY tab.chew 05/01/19 Unknown Rx AtorvaSTATin [Lipitor] 80 mg PO QHS #90 tablet 05/01/19 Unknown Rx Clopidogrel [Plavix] 75 mg PO QDAY tablet 05/01/19 Unknown Rx Furosemide [Lasix TAB] 40 mg PO QDAY #90 tablet 05/01/19 Unknown Rx Lisinopril [Zestril TAB] 10 mg PO QDAY #90 tablet 05/01/19 Unknown Rx Metoprolol [Lopressor TAB] 50 mg PO BID #180 tablet 05/01/19 Unknown Rx Plavix 75 mg PO DAILY #90 05/01/19 Unknown Rx Spironolactone [Aldactone] 25 mg PO QDAY #90 tablet 05/01/19 Unknown Rx Allergies Allergy/AdvReac Type Severity Reaction Status Date / Time Penicillins AdvReac Rash Verified 04/29/19 08:39 Heart Score - HEART Score History: Highly suspicious EKG: Non-specific Age: 45-65 Risk factors: > 3 risk factors or hx of atherosclerotic disease Troponin: < normal limit HEART Score: 6 ED Review of Systems ROS: Stated complaint: CP Other details as noted in HPI Comment: All other systems reviewed and negative Constitutional: denies: chills, fever Respiratory: shortness of breath. denies: cough Cardiovascular: chest pain Gastrointestinal: nausea, vomiting ED Past Medical Hx - Past Medical History Previous Medical History?: Yes Hx Hypertension: Yes Hx Heart Attack/AMI: Yes Hx Congestive Heart Failure: No Hx Diabetes: Yes Hx Deep Vein Thrombosis: No Hx Pulmonary Embolism: No Hx GERD: No Hx Liver Disease: No Hx Renal Disease: No Hx Sickle Cell Disease: No Hx Headaches / Migraines: No Hx Kidney Stones: No Hx Asthma: No Hx COPD: No Hx Tuberculosis: No Hx HIV: No - Surgical History Past Surgical History?: Yes Hx Coronary Stent: Yes (LAD February 2019) Hx Pacemaker: No Hx Internal Defibrillator: No Additional Surgical History: stents 02/2019 - Social History Smoking Status: Current Every Day Smoker Substance Use Type: Alcohol - Medications Home Medications: Home Medications Medication Instructions Recorded Confirmed Last Taken Type Aspirin 81 mg PO DAILY 04/29/19 08/11/19 Unknown History Nitroglycerin [Nitrostat] 0.4 mg SL Q5M PRN 04/29/19 08/11/19 Unknown History glyBURIDE-Metformin 1.25-250 mg 500 mg PO BID 04/29/19 08/11/19 Unknown History Aspirin [Aspirin BABY CHEW TAB] 81 mg PO QDAY tab.chew 05/01/19 08/11/19 Unknown Rx AtorvaSTATin [Lipitor] 80 mg PO QHS #90 tablet 05/01/19 08/11/19 Unknown Rx Clopidogrel [Plavix] 75 mg PO QDAY tablet 05/01/19 08/11/19 Unknown Rx Furosemide [Lasix TAB] 40 mg PO QDAY #90 tablet 05/01/19 08/11/19 Unknown Rx Lisinopril [Zestril TAB] 10 mg PO QDAY #90 tablet 05/01/19 08/11/19 Unknown Rx Metoprolol [Lopressor TAB] 50 mg PO BID #180 tablet 05/01/19 08/11/19 Unknown Rx Plavix 75 mg PO DAILY #90 05/01/19 08/11/19 Unknown Rx Spironolactone [Aldactone] 25 mg PO QDAY #90 tablet 05/01/19 08/11/19 Unknown Rx ED Physical Exam - General Limitations: No Limitations General appearance: alert, in no apparent distress - Head Head exam: Present: atraumatic, normocephalic - Eye Eye exam: Present: normal appearance - ENT ENT exam: Present: mucous membranes moist - Neck Neck exam: Present: normal inspection - Respiratory Respiratory exam: Present: normal lung sounds bilaterally. Absent: respiratory distress - Cardiovascular Cardiovascular Exam: Present: regular rate, normal rhythm - GI/Abdominal GI/Abdominal exam: Present: soft. Absent: distended, tenderness - Extremities Exam Extremities exam: Present: normal inspection - Neurological Exam Neurological exam: Present: alert, oriented X3 - Psychiatric Psychiatric exam: Present: normal affect, normal mood - Skin Skin exam: Present: warm, dry, intact, normal color ED Course Vital Signs 08/10/19 08/10/19 08/10/19 22:05 22:30 23:00 Temperature 98.1 F Pulse Rate 91 H 87 89 Respiratory 13 26 H 23 Rate Blood Pressure 134/77 136/81 123/83 O2 Sat by Pulse 96 96 98 Oximetry 08/10/19 08/10/19 08/11/19 23:30 23:33 00:00 Temperature Pulse Rate 81 86 78 Respiratory 22 25 H 15 Rate Blood Pressure 127/74 127/74 134/86 O2 Sat by Pulse 95 97 99 Oximetry 08/11/19 08/11/19 08/11/19 00:30 01:01 01:05 Temperature Pulse Rate 78 74 72 Respiratory 20 23 Rate Blood Pressure 132/80 143/80 O2 Sat by Pulse 98 99 Oximetry 08/11/19 08/11/19 08/11/19 01:30 01:41 01:51 Temperature Pulse Rate 81 73 71 Respiratory 19 19 15 Rate Blood Pressure 143/80 109/53 O2 Sat by Pulse 99 98 98 Oximetry ED Medical Decision Making - Lab Data Result diagrams: 08/10/19 22:29 08/11/19 00:29 - EKG Data -: EKG Interpreted by Me EKG shows normal: sinus rhythm, intervals, QRS complexes Rate: normal - EKG Data When compared to previous EKG there are: no significant change (compared to 04/2019) Interpretation: other (incomplete RBBB, LAFB, prior anterior infarct) - Radiology Data Radiology results: report reviewed, image reviewed - Differential Diagnosis ACS, CHF, PE Critical care attestation.: If time is entered above; I have spent that time in minutes in the direct care of this critically ill patient, excluding procedure time. ED Disposition Clinical Impression: Acute chest pain, Hyperglycemia Disposition: OP ADMIT IP TO THIS HOSP Is pt being admited?: Yes Condition: Stable Time of Disposition: 00:06
[2019-08-10 23:05] LABS: BUN/Creatinine Ratio 17; Blood Urea Nitrogen 15 mg/dL (9-20); Calcium 8.9 mg/dL (8.4-10.2); Hemolysis Index 31
[2019-08-10 23:15] LABS: Platelet Count 144 K/mm3 (140-440)
--- NOTE | 2019-08-10 23:16 | XRay Report ---
. CHEST 1 VIEW INDICATION: Chest Pain. COMPARISON: 04/29/2019. FINDINGS: Support devices: None. Heart: Within normal limits. Lungs/Pleura: No acute air space or interstitial disease. Additional findings: None. IMPRESSION: No acute abnormality. Signer Name: Ajay Corrales MD Signed: 08/10/2019 11:12 PM Workstation Name: [id number]
[2019-08-11] MEDS ORDERED: MAGNESIUM HYDROXIDE (MOM) ORAL LIQD UDC PO PRN (00:16)
[2019-08-11] MEDS ORDERED: ONDANSETRON 4 MG/2 ML INJ IV PRN (00:16)
[2019-08-11] MEDS ORDERED: MORPHINE 2 MG/1 ML INJ IV PRN (00:16)
[2019-08-11] MEDS ORDERED: DEXTROSE 50% IN WATER (25GM) 50 ML SYRINGE IV PRN (00:16)
[2019-08-11 01:05] LABS: BUN/Creatinine Ratio 19; Blood Urea Nitrogen 15 mg/dL (9-20); Calcium 9.1 mg/dL (8.4-10.2); Hemolysis Index 10
--- NOTE | 2019-08-11 01:13 | History and Physical Report ---
History of Present Illness Date of examination: 08/11/19 Date of admission: 08/11/19 Chief complaint: Chest pain History of present illness: 49 year old male with known history of CAD with stent placement,hypertension , D/mellitus and mixed hyperlipidemia presenting to the ER with a few days of intermittent left sided chest pain. Pain radiates to the left arm occasionally with accompanying numbness.Pain is sharp and lasts for a few minutes. Chest pain got worse today and presents to the ER He had associated shortness of breath, no nausea, no vomiting. No fever and no chills. There is no relieving or exacerbating factor for his chest pain. He has not been compliant with his medications due to financial issues. He has been out of his plavix for a few months. His work-up in the emergency room is unremarkable. Past History Past Medical History: CAD, diabetes, hypertension, hyperlipidemia Past Surgical History: Other (Cardiac stent placement) Social history: smoking (Less than a pack per day of cigarette) Family history: no significant family history Medications and Allergies Allergies Allergy/AdvReac Type Severity Reaction Status Date / Time Penicillins AdvReac Rash Verified 04/29/19 08:39 Home Medications Medication Instructions Recorded Confirmed Last Taken Type Aspirin 81 mg PO DAILY 04/29/19 08/11/19 Unknown History Nitroglycerin [Nitrostat] 0.4 mg SL Q5M PRN 04/29/19 08/11/19 Unknown History glyBURIDE-Metformin 1.25-250 mg 500 mg PO BID 04/29/19 08/11/19 Unknown History Aspirin [Aspirin BABY CHEW TAB] 81 mg PO QDAY tab.chew 05/01/19 08/11/19 Unknown Rx AtorvaSTATin [Lipitor] 80 mg PO QHS #90 tablet 05/01/19 08/11/19 Unknown Rx Clopidogrel [Plavix] 75 mg PO QDAY tablet 05/01/19 08/11/19 Unknown Rx Furosemide [Lasix TAB] 40 mg PO QDAY #90 tablet 05/01/19 08/11/19 Unknown Rx Lisinopril [Zestril TAB] 10 mg PO QDAY #90 tablet 05/01/19 08/11/19 Unknown Rx Metoprolol [Lopressor TAB] 50 mg PO BID #180 tablet 05/01/19 08/11/19 Unknown Rx Plavix 75 mg PO DAILY #90 05/01/19 08/11/19 Unknown Rx Spironolactone [Aldactone] 25 mg PO QDAY #90 tablet 05/01/19 08/11/19 Unknown Rx Active Meds: Active Medications Acetaminophen (Tylenol) 650 mg PO Q4H PRN PRN Reason: Pain MILD(1-3)/Fever >100.5/QUEVEDO Aspirin (Ecotrin) 325 mg PO QDAY [facility] Dextrose (D50w (25gm) Syringe) 0 ml IV Q30MIN PRN; Protocol PRN Reason: Hypoglycemia Insulin Human Regular (Humulin R) 0 units SUB-Q ACHS EBER; Protocol Magnesium Hydroxide (Milk Of Magnesia) 30 ml PO Q4H PRN PRN Reason: Constipation Morphine Sulfate (Morphine) 2 mg IV Q5MIN PRN PRN Reason: Chest Pain Ondansetron HCl (Zofran) 4 mg IV Q8H PRN PRN Reason: Nausea And Vomiting Sodium Chloride (Sodium Chloride Flush Syringe 10 Ml) 10 ml IV PRN PRN PRN Reason: LINE FLUSH Sodium Chloride (Sodium Chloride Flush Syringe 10 Ml) 10 ml IV BID [facility] Review of Systems Cardiovascular: chest pain, shortness of breath Exam - Constitutional Vitals: Temp Pulse Resp BP Pulse Ox 98.1 F 78 20 132/80 98 08/10/19 22:05 08/11/19 00:30 08/11/19 00:30 08/11/19 00:30 08/11/19 00:30 General appearance: Present: no acute distress, well-nourished - EENT Eyes: Present: PERRL, EOM intact ENT: hearing intact, clear oral mucosa, dentition normal - Neck Neck: Present: supple, normal ROM - Respiratory Respiratory effort: normal Respiratory: bilateral: CTA - Cardiovascular Rhythm: regular Heart Sounds: Present: S1 & S2 - Extremities Extremities: no ischemia, pulses intact, pulses symmetrical, No edema, Full ROM Peripheral Pulses: within normal limits - Abdominal General gastrointestinal: Present: soft, non-tender, non-distended, normal bowel sounds - Integumentary Integumentary: Present: clear, warm, dry - Musculoskeletal Musculoskeletal: strength equal bilaterally - Psychiatric Psychiatric: appropriate mood/affect, intact judgment & insight, cooperative - Neurologic Neurologic: CNII-XII intact, moves all extremities Results - Labs CBC & Chem 7: 08/10/19 22:29 08/11/19 00:29 Labs: Abnormal lab results 08/10/19 08/10/19 08/11/19 Range/Units 22:29 22:29 00:29 [place] % (Auto) 8.2 H (0.0-7.3) % Glucose 319 H 254 H (75-100) mg/dL Assessment and Plan - Patient Problems (1) Acute chest pain Current Visit: Yes Status: Acute Plan to address problem: We will check serial cardiac enzymes. Patient will be placed on daily aspirin, sublingual nitroglycerin as needed and IV morphine if needed. We will place a consult to cardiology for further evaluation and recommendation. 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 (3) Tobacco abuse Current Visit: Yes Status: Acute Plan to address problem: Patient counseled on quitting tobacco use. (4) Hyperlipemia, mixed Current Visit: No Status: Chronic Plan to address problem: We will continue routine home medication monitor lipid profile. (5) Hypertension Current Visit: No Status: Chronic Qualifiers: Hypertension type: essential hypertension Qualified Code(s): I10 - Essential (primary) hypertension Plan to address problem: Blood pressure appears stable we will continue routine home medications and monitor vital signs closely. (6) DVT prophylaxis Current Visit: Yes Status: Acute Plan to address problem: Patient placed on subcutaneous heparin. (7) Full code status Current Visit: Yes Status: Acute
[2019-08-11] MEDS ORDERED: ACETAMINOPHEN 325 MG TAB ONE (01:38)
[2019-08-11] MEDS: ACETAMINOPHEN 325 MG TAB PO PRN ×2 (01:45→14:50)
[2019-08-11] MEDS: HEPARIN 5,000 UNIT/1 ML VIAL SUB-Q SCH ×3 (05:25→22:07)
[2019-08-11] MEDS ORDERED: NITROGLYCERIN 0.4 MG TAB SUBL SL PRN (07:47)
[2019-08-11] MEDS ORDERED: GLYBURIDE METFORMIN PO SCH (10:00)
[2019-08-11] MEDS ORDERED: glyBURIDE 2.5 MG TAB PO SCH (10:00)
[2019-08-11] MEDS ORDERED: NON-FORMULARY EACH (Aspirin 81 MG) PO SCH (10:00)
[2019-08-11] MEDS: INSULIN REGULAR, HUMAN 100 UNITS/1 ML SUB-Q SCH ×4 (10:10→22:07)
[2019-08-11] MEDS: CLOPIDOGREL 75 MG TAB PO SCH (10:11)
[2019-08-11] MEDS: ASPIRIN EC 81 MG TAB PO SCH (10:11)
[2019-08-11] MEDS: LISINOPRIL 10 MG TAB PO SCH (10:11)
[2019-08-11] MEDS: SPIRONOLACTONE 25 MG TAB PO SCH (10:12)
[2019-08-11] MEDS: METOPROLOL TARTRATE 50 MG TAB PO SCH ×2 (10:12→22:07)
[2019-08-11] MEDS: FUROSEMIDE 40 MG TAB PO SCH (10:13)
--- NOTE | 2019-08-11 11:01 | Progress Note ---
Subjective Date of service: 08/11/19 Interval history: CONSULT DICTATED. RECOMM STRESS THALLIUM IN AM Objective Vital Signs Temp Pulse Resp BP Pulse Ox 08/11/19 10:12 61 138/88 08/11/19 10:11 61 138/88 08/11/19 07:36 98.5 F 61 18 138/88 100 08/11/19 04:32 98.9 F 66 18 121/77 95 08/11/19 03:10 18 08/11/19 02:00 71 18 137/75 97 08/11/19 01:51 71 15 109/53 98 08/11/19 01:41 73 19 98 08/11/19 01:30 81 19 143/80 99 08/11/19 01:05 72 08/11/19 01:01 74 23 143/80 99 08/11/19 00:30 78 20 132/80 98 08/11/19 00:00 78 15 134/86 99 08/10/19 23:33 86 25 H 127/74 97 08/10/19 23:30 81 22 127/74 95 08/10/19 23:00 89 23 123/83 98 08/10/19 22:30 87 26 H 136/81 96 08/10/19 22:05 98.1 F 91 H 13 134/77 96 - Labs and Meds CBC 08/10/19 Range/Units 22:29 WBC 8.3 (4.5-11.0) K/mm3 RBC 4.75 (3.65-5.03) M/mm3 Hgb 13.5 (11.8-15.2) gm/dl Hct 41.6 (35.5-45.6) % Plt Count 144 (140-440) K/mm3 Lymph # 2.5 (1.2-5.4) K/mm3 [place] # 0.7 (0.0-0.8) K/mm3 Eos # 0.3 (0.0-0.4) K/mm3 Baso # 0.1 (0.0-0.1) K/mm3 Comprehensive Metabolic Panel 08/10/19 08/11/19 Range/Units 22:29 00:29 Sodium 139 141 (137-145) mmol/L Potassium 4.2 4.2 (3.6-5.0) mmol/L Chloride 104.3 106.1 (98-107) mmol/L Carbon Dioxide 26 25 (22-30) mmol/L BUN 15 15 (9-20) mg/dL Creatinine 0.9 0.8 (0.8-1.5) mg/dL Glucose 319 H 254 H (75-100) mg/dL Calcium 8.9 9.1 (8.4-10.2) mg/dL
--- NOTE | 2019-08-11 12:13 | Consultation ---
HISTORY OF PRESENT ILLNESS: The patient is a 49-year-old male with a history of coronary artery disease, heart failure, diabetes and hypertension. He is also a smoker, he is improving, smoking much less. He was hospitalized here about 3 months ago with an MA and coronary stent. He has been unable to afford all of his medications. He is relatively inactive, he tires easily, he occasionally has chest pain with activity. Yesterday, he had prolonged episodes of chest pain at rest with associated left arm discomfort. It felt like something was sitting on his chest. There was some associated shortness of breath. There was no major improvement with sublingual nitroglycerin. There has been no ankle edema or claudication. He did not describe any palpitations or dizziness. SOCIAL HISTORY: Smoking less than 1 pack per day. Alcohol: No heavy use. FAMILY HISTORY: Unremarkable. OPERATIONS: No surgeries. ALLERGIES: PENICILLIN. MEDICATIONS: See the nurse's list. REVIEW OF SYSTEMS: Did not describe any other significant complaints or medical problems. PHYSICAL EXAMINATION: GENERAL: Well-developed, slightly overweight, in no acute distress. Alert, oriented, cooperative. Mental status normal. EYES, NOSE, AND THROAT: Unremarkable. NECK: Reveals no JVD or bruits. Neck is supple, no masses. LUNGS: Clear. No labored respirations. HEART: Regular rhythm. Soft S4. No murmurs or rubs. ABDOMEN: Soft, nontender, no masses. EXTREMITIES: No cyanosis, clubbing or edema. Peripheral pulses are intact. NEUROLOGIC: Symmetrical. SKIN: Clear. IMPRESSION AND PLAN: 1. History of coronary artery disease with symptoms suggestive of unstable angina. There are no new electrocardiographic changes or significant enzyme elevations. This may have been precipitated by noncompliance with medications. Stress thallium study will be recommended in the morning. 2. History of heart failure: Stable. 3. Hypertension: Stable. 4. Diabetes. 5. Nicotine dependence: Improving. Thank you for this consultation. JOB# [id number] JDS/NTS
[2019-08-11] MEDS ORDERED: metFORMIN 500 MG TAB PO SCH (17:00)
[2019-08-12] MEDS ORDERED: REGADENOSON 0.4 MG/5 ML INJ IV ONE (07:06)
[2019-08-12 07:59] LABS: Basophils # (Auto) 0.1 K/mm3 (0.0-0.1); Basophils % (Auto) 1.1 % (0.0-1.8); Eosinophils # (Auto) 0.2 K/mm3 (0.0-0.4); Eosinophils % (Auto) 2.7 % (0.0-4.3); Hematocrit 41.2 % (35.5-45.6); Hemoglobin 13.4 gm/dl (11.8-15.2); Lymphocytes # (Auto) 2.8 K/mm3 (1.2-5.4); Lymphocytes % (Auto) 33.8 % (13.4-35.0); Mean Corpuscular HGB Conc 33 % (32-34); Mean Corpuscular Volume 87 fl (84-94); Monocytes # (Auto) 0.8 K/mm3 (0.0-0.8); Monocytes % (Auto) 9.3 % (0.0-7.3); Red Blood Count 4.71 M/mm3 (3.65-5.03); Red Cell Distribution Width 13.4 % (13.2-15.2)
[2019-08-12 08:00] LABS: Platelet Count 147 K/mm3 (140-440)
[2019-08-12] MEDS ORDERED: metFORMIN XR 500MG TAB PO SCH (08:00)
[2019-08-12] MEDS: HEPARIN 5,000 UNIT/1 ML VIAL SUB-Q SCH (08:04)
[2019-08-12 08:08] LABS: INR 1.08 (0.87-1.13)
[2019-08-12 08:10] LABS: Partial Thromboplastin Time 28.2 Sec. (24.2-36.6)
[2019-08-12 08:24] LABS: BUN/Creatinine Ratio 19; Blood Urea Nitrogen 17 mg/dL (9-20); Calcium 9.2 mg/dL (8.4-10.2); Hemolysis Index 6
--- NOTE | 2019-08-12 09:19 | Event Note ---
Date: 08/12/19 Patient of [facility], coronary intervention on last visit 04/[address] Rizo, please refer further cardiac care to his service. We will sign off.
[2019-08-12] MEDS ORDERED: ASPIRIN EC 325 MG TAB PO SCH (10:00)
--- NOTE | 2019-08-12 10:07 | Discharge Summary ---
Providers - Providers Date of Admission: 08/11/19 00:16 Attending physician: FERN BAUTISTA MD 08/11/19 Consult to Cardiac Rehabilitation [CONS] Routine Reason For Exam: Phase I 08/11/19 00:18 Consult to Dietitian/Nutrition [CONS] Routine Physician Instructions: Reason For Exam: Reason for Consult: Diet education 08/12/19 10:03 Consult to Physician [CONS] Routine Comment: Consulting Provider: CARA BRANHAM Physician Instructions: Reason For Exam: chest pain Primary care physician: [employer] Hospitalization Condition: Stable Hospital course: 49-year-old man who presented to the hospital with chest pain. ACS was ruled out. Chest x-ray and EKG were negative. He was seen by cardiology, went on to have a stress test. Per cardiology there was no large reversible lesions on his MPI. Therefore patient was discharged. Tobacco abuse/dependence Smoking cessation counseling performed for 10 minutes, nicotine patches when necessary -Patient was hypoglycemic and had A1c of 6.6. Given history of coronary artery disease, low glucose puts the patient at risk for further cardiac events and strokes. Therefore combination glipizide/metformin was discontinued. Patient was discharged on monotherapy with metformin. -Preventative health counseling performed for 17 minutes Diagnosis Chest pain secondary to History of coronary artery disease Type 2 diabetes Tobacco abuse and dependence Hyperlipidemia Hypertension chronic systolic CHF EF 45 Disposition: DC-01 TO HOME OR SELFCARE Time spent for discharge: 35 minutes Core Measure Documentation - Palliative Care Palliative Care/ Comfort Measures: Not Applicable - Core Measures Any of the following diagnoses?: heart failure - Heart Failure Discharge Requirements MARYANN/ARB for LVSD if EF <40%: Not Applicable Beta josh at discharge: Yes Exam - Constitutional Vitals: Temp Pulse Resp BP Pulse Ox 98.0 F 59 L 18 121/79 97 08/12/19 07:58 08/12/19 04:04 08/12/19 07:58 08/12/19 07:58 08/12/19 04:04 General appearance: Present: no acute distress, well-nourished - EENT Eyes: Present: PERRL ENT: hearing intact, clear oral mucosa - Neck Neck: Present: supple, normal ROM - Respiratory Respiratory effort: normal Respiratory: bilateral: CTA - Cardiovascular Heart Sounds: Present: S1 & S2. Absent: rub, click - Extremities Extremities: pulses symmetrical, No edema Peripheral Pulses: within normal limits - Abdominal General gastrointestinal: Present: soft, non-tender, non-distended, normal bowel sounds Male genitourinary: Present: normal - Integumentary Integumentary: Present: clear, warm, dry - Musculoskeletal Musculoskeletal: gait normal, strength equal bilaterally - Psychiatric Psychiatric: appropriate mood/affect, intact judgment & insight - Neurologic Neurologic: CNII-XII intact, moves all extremities Plan Follow up with: MARILOU DUNN MD [Staff Physician] - 7 Days PRIMARY CARE, [Primary Care Provider] - 7 Days Prescriptions: metFORMIN XR [Glucophage XR] 500 mg PO QDDIAB #30 tablet Nicotine [Habitrol] 14 mg TD DAILY #30 patch ISOSORBIDE MONOnitrate [Imdur ER] 30 mg PO QDAY #90 tablet Lisinopril [Zestril TAB] 5 mg PO QDAY #90 tablet
--- NOTE | 2019-08-12 10:29 | Treadmill Report ---
LEXISCAN STRESS TEST REPORT REASON FOR STUDY: Chest pain. STRESS TEST PROTOCOL: The patient received 0.4 mg of Lexiscan intravenously over 10 seconds. Tc-99m Tetrofosmin was subsequently injected. Baseline ECG, sinus bradycardia with incomplete right bundle branch block, T-wave abnormality. Consider inferior and anterolateral ischemia. Anteroseptal myocardial infarction of undetermined age. Lexiscan ECG. He developed some pseudonormalization of the baseline T-wave abnormalities. No chest pain. No arrhythmias. IMPRESSION: Electrocardiographically negative stress test. Nuclear imaging report to follow. JOB# [id number] MARU/NTS
[2019-08-12] MEDS ORDERED: NICOTINE 14 MG/24 HR PATCH TD SCH (11:00)
--- NOTE | 2019-08-12 11:27 | Consultation ---
History of Present Illness Consult date: 08/12/19 Requesting physician: LANDON ALVARADO Consult reason: chest pain History of present illness: The patient has a history of coronary artery disease, status post PCI to the LAD in February 2019. In April 2019, he presented with acute anterior myocardial infarction and underwent POBA to the LAD and Diagonal. Ejection fraction was 35-40%. Last night, while watching TV with his family, he developed a sharp substernal chest pain which was partially relieved with sublingual nitroglycerin. However, due to recurrent chest pain, he decided to activate the EMS. Past History Past Medical History: CAD, diabetes, heart failure, hypertension, hyperlipidemia, other (Ischemic CMP) Past Surgical History: PTCA, Other (Coronary artery stenting) Social history: smoking (Less than a pack per day of cigarette). denies: alcohol abuse Family history: no significant family history Medications and Allergies Allergies Allergy/AdvReac Type Severity Reaction Status Date / Time Penicillins AdvReac Rash Verified 04/29/19 08:39 Home Medications Medication Instructions Recorded Confirmed Last Taken Type Aspirin 81 mg PO DAILY 04/29/19 08/11/19 Unknown History Nitroglycerin [Nitrostat] 0.4 mg SL Q5M PRN 04/29/19 08/11/19 Unknown History AtorvaSTATin [Lipitor] 80 mg PO QHS #90 tablet 05/01/19 08/11/19 Unknown Rx Clopidogrel [Plavix] 75 mg PO QDAY tablet 05/01/19 08/11/19 Unknown Rx Furosemide [Lasix TAB] 40 mg PO QDAY #90 tablet 05/01/19 08/11/19 Unknown Rx Lisinopril [Zestril TAB] 10 mg PO QDAY #90 tablet 05/01/19 08/11/19 Unknown Rx Metoprolol [Lopressor TAB] 50 mg PO BID #180 tablet 05/01/19 08/11/19 Unknown Rx Spironolactone [Aldactone] 25 mg PO QDAY #90 tablet 05/01/19 08/11/19 Unknown Rx Nicotine [Habitrol] 14 mg TD DAILY #30 patch 08/12/19 Unknown Rx metFORMIN XR [Glucophage XR] 500 mg PO QDDIAB #30 tablet 08/12/19 Unknown Rx Active Meds: Active Medications Acetaminophen (Tylenol) 650 mg PO Q4H PRN PRN Reason: Pain MILD(1-3)/Fever >100.5/QUEVEDO Last Admin: 08/11/19 14:50 Dose: 650 mg Documented by: Aspirin (Halfprin Ec) 81 mg PO QDAY [facility] Last Admin: 08/11/19 10:11 Dose: 81 mg Documented by: Atorvastatin Calcium (Lipitor) 80 mg PO QHS [facility] Last Admin: 08/11/19 22:06 Dose: 80 mg Documented by: Clopidogrel Bisulfate (Plavix) 75 mg PO QDAY [facility] Last Admin: 08/11/19 10:11 Dose: 75 mg Documented by: Dextrose (D50w (25gm) Syringe) 0 ml IV Q30MIN PRN; Protocol PRN Reason: Hypoglycemia Furosemide (Lasix) 40 mg PO QDAY [facility] Last Admin: 08/11/19 10:13 Dose: 40 mg Documented by: Heparin Sodium (Porcine) (Heparin) 5,000 unit SUB-Q Q8HR [facility] Last Admin: 08/12/19 08:04 Dose: 5,000 unit Documented by: Insulin Human Regular (Humulin R) 0 units SUB-Q ACHS [facility]; Protocol Last Admin: 08/11/19 22:07 Dose: 3 units Documented by: Lisinopril (Zestril) 10 mg PO QDAY [facility] Last Admin: 08/11/19 10:11 Dose: 10 mg Documented by: Magnesium Hydroxide (Milk Of Magnesia) 30 ml PO Q4H PRN PRN Reason: Constipation Metformin HCl (Glucophage Xr) 500 mg PO QDDIAB [facility] Last Admin: 08/12/19 11:11 Dose: Not Given Documented by: Metoprolol Tartrate (Metoprolol) 50 mg PO BID [facility] Last Admin: 08/11/19 22:07 Dose: 50 mg Documented by: Morphine Sulfate (Morphine) 2 mg IV Q5MIN PRN PRN Reason: Chest Pain Nicotine (Habitrol) 14 mg TD QDAY [facility] Nitroglycerin (Nitrostat) 0.4 mg SL Q5M PRN PRN Reason: Chest Pain Ondansetron HCl (Zofran) 4 mg IV Q8H PRN PRN Reason: Nausea And Vomiting Sodium Chloride (Sodium Chloride Flush Syringe 10 Ml) 10 ml IV PRN PRN PRN Reason: LINE FLUSH Sodium Chloride (Sodium Chloride Flush Syringe 10 Ml) 10 ml IV BID [facility] Last Admin: 08/11/19 22:07 Dose: 10 ml Documented by: Spironolactone (Aldactone) 25 mg PO QDAY [facility] Last Admin: 08/11/19 10:12 Dose: 25 mg Documented by: Review of Systems Constitutional: no fever, no chills Ears, nose, mouth and throat: no ear pain, no ear discharge, no sore throat Cardiovascular: chest pain, no palpitations, no shortness of breath Respiratory: no cough, no hemoptysis Gastrointestinal: no abdominal pain, no nausea, no vomiting, no diarrhea, no constipation Genitourinary Male: no dysuria, no urinary frequency Rectal: no pain, no incontinence Musculoskeletal: no neck stiffness, no neck pain, no myalgias Integumentary: no rash, no pruritis Neurological: no weakness, no parathesias, no headaches Endocrine: no cold intolerance, no heat intolerance Hematologic/Lymphatic: no easy bruising, no easy bleeding Allergic/Immunologic: no urticaria, no wheezing Physical Examination Vital Signs Last Vital Signs Temp 98.0 F 08/12/19 07:58 Pulse 68 08/12/19 10:00 Resp 18 08/12/19 07:58 BP 121/79 08/12/19 07:58 Pulse Ox 97 08/12/19 04:04 General appearance: no acute distress HEENT: Positive: EOMI, Normocephaly, Mucus Membranes Moist Neck: Positive: neck supple, trachea midline Cardiac: Positive: Reg Rate and Rhythm, S1/S2 Lungs: Positive: clear to auscultation Neuro: Positive: Grossly Intact Abdomen: Positive: Soft, Active Bowel Sounds. Negative: Tender Skin: Positive: Clear. Negative: Rash Musculoskeletal: Normal Range of Motion Extremities: Present: normal. Absent: edema Results 08/12/19 06:39 08/12/19 06:39 Coagulation 08/12/19 Range/Units 06:39 PT 13.9 (12.2-14.9) Sec. INR 1.08 (0.87-1.13) APTT 28.2 (24.2-36.6) Sec. CBC 08/12/19 Range/Units 06:39 WBC 8.3 (4.5-11.0) K/mm3 RBC 4.71 (3.65-5.03) M/mm3 Hgb 13.4 (11.8-15.2) gm/dl Hct 41.2 (35.5-45.6) % Plt Count 147 (140-440) K/mm3 Lymph # 2.8 (1.2-5.4) K/mm3 [place] # 0.8 (0.0-0.8) K/mm3 Eos # 0.2 (0.0-0.4) K/mm3 Baso # 0.1 (0.0-0.1) K/mm3 Comprehensive Metabolic Panel 08/12/19 Range/Units 06:39 Sodium 141 (137-145) mmol/L Potassium 4.4 (3.6-5.0) mmol/L Chloride 103.4 (98-107) mmol/L Carbon Dioxide 23 (22-30) mmol/L BUN 17 (9-20) mg/dL Creatinine 0.9 (0.8-1.5) mg/dL Glucose 174 H (75-100) mg/dL Calcium 9.2 (8.4-10.2) mg/dL - Imaging and Cardiology EKG: image reviewed EKG interpretations - Telemetry EKG Rhythm: Sinus Rhythm - EKG Sinus rhythms and dysrhythmias: sinus rhythm Repolarization changes or abnormalities: ST or T wave suggestive of ischemia Myocardial infarction: septal CO (old age or ind, anterior CO (old age or i Assessment and Plan Optimize anti-ischemic regimen. Lexiscan stress test with nuclear imaging. - Patient Problems (1) Unstable angina Current Visit: Yes Status: Acute (2) CAD (coronary artery disease) Current Visit: Yes Status: Chronic Qualifiers: Coronary Disease-Associated Artery/Lesion type: kake artery (3) Stented coronary artery Current Visit: Yes Status: Chronic (4) Ischemic cardiomyopathy Current Visit: Yes Status: Chronic (5) Chronic HFrEF (heart failure with reduced ejection fraction) Current Visit: Yes Status: Chronic (6) Hypertension Current Visit: Yes Status: Chronic Qualifiers: Hypertension type: essential hypertension Qualified Code(s): I10 - Essential (primary) hypertension (7) Diabetes mellitus Current Visit: Yes Status: Chronic Qualifiers: Diabetes mellitus type: type 2
[2019-08-12] MEDS: INSULIN REGULAR, HUMAN 100 UNITS/1 ML SUB-Q SCH (11:50)
[2019-08-12 12:07] VITALS: BP 123/81
[2019-08-12] MEDS: ASPIRIN EC 81 MG TAB PO SCH (12:10)
[2019-08-12] MEDS: CLOPIDOGREL 75 MG TAB PO SCH (12:10)
[2019-08-12] MEDS: SPIRONOLACTONE 25 MG TAB PO SCH (12:10)
[2019-08-12] MEDS: FUROSEMIDE 40 MG TAB PO SCH (12:10)
[2019-08-12] MEDS: METOPROLOL TARTRATE 50 MG TAB PO SCH (12:10)
[2019-08-12] MEDS: LISINOPRIL 10 MG TAB PO SCH (12:10)
[2019-08-12] MEDS ORDERED: LISINOPRIL 10 MG TAB PO SCH (12:26)
--- NOTE | 2019-08-12 12:27 | Event Note ---
Date: 08/12/19 S/p lexiscan MPI stress test this AM which showed mild ischemia, EF 44%. Continue with medical management - add oral nitrates. Currently stable cardiac status. Chest pain currently resolved. Pt may discharge home from cardiology standpoint. Recommend follow up in our office with Dr. Dunn within 1-2 weeks ([phone]). Rene BLUNT NP / DR. DUNN
[2019-08-12] MEDS ORDERED: LISINOPRIL 5 MG TAB PO SCH (13:00)
--- NOTE | 2019-08-12 21:36 | Treadmill Report ---
REASON FOR STUDY: Chest pain. IMAGING PROTOCOL: The patient received 10 mCi of Technetium 99m Tetrofosmin for resting image and 28 mCi of Technetium 99m Tetrofosmin for stress imaging. The imaging for the whole procedure was completed 30-90 minutes following the initial injection of Technetium 99m Tetrofosmin. The SPECT imaging in the 180 degree arc was performed in the right anterior oblique projection. Computerized reconstruction of the images was performed for analysis. IMAGING RESULTS: Normal cavity size from stress to rest. Normal distribution of radionuclide in the lateral, anterolateral and inferior region, both seen in stress and rest, but there is a large absent of radionuclide in the apical, anterior apical and septal region. Moderate decrease that is similar in both stress and rest with some mild caprice-infarct ischemia in the anterior apical region with gated SPECT, EF 44% with hypokinesis of the apical, anterior apical region. The patient infused Lexiscan with no EKG changes. SUMMARY: 1. Negative Lexiscan EKG. 2. No significant stress induced ischemia noted with a small mild caprice-infarct ischemia noted of a large apical infarction, mild to moderate septal wall infarction and [id number] anterior apical infarction with normal perfusion in the anterolateral region and inferolateral region with gated SPECT, EF 40% with hypokinesis in the apical and anterior apical region. JOB# [id number] DELMY/NICOLÁS
--- NOTE | 2019-08-13 05:45 | Treadmill Report ---
THALLIUM REPORT REASON FOR STUDY: Chest pain. IMAGING PROTOCOL: The patient received 10 mCi of Tc-99m Tetrofosmin for rest imaging and 28 mCi of Tc-99m Tetrofosmin for stress imaging. Imaging for all procedures was completed 30-90 minutes following the initial injection of Technetium 99m Tetrofosmin. SPECT imaging in the 180 degree arc was performed in the right anterior oblique projection. Computerized reconstruction of the images was performed for analysis. NUCLEAR IMAGING RESULTS: Normal left ventricular cavity size with no change from stress to rest. 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 The degree of photo-induction is severe. Rest imaging does not show any significant improvement in this defect. There is also a medium size area of photo-induction involving the anterior and anteroseptal region. The degree of photo-induction is [id number]. Rest imaging showed only minimal improvement in this defect. In addition, there is a medium-sized area of photo-induction involving the inferior wall. The degree of photo-induction is moderate. Rest imaging showed only minimal improvement in this defect. There is also a large area of photo-induction involving the lateral wall. The degree of photo-induction is moderate. Rest imaging does not show any significant improvement in this defect. Gated SPECT imaging revealed [id number] global left ventricular systolic dysfunction with severe hypokinesis of the inferior wall and septum, and moderate anterior and anteroseptal hypokinesis. The calculated left ventricular ejection fraction is 44%. IMPRESSION: Large fixed apical defect. Medium size, predominantly fixed, minimally reversible anterior and anteroseptal defect. Medium size, predominantly fixed, minimally reversible inferior defect. Large fixed lateral defect. [id number] global left ventricular systolic dysfunction with severe inferior and septal hypokinesis with moderate anterior and anteroseptal hypokinesis. EF 44%. These findings suggest prior infarction with minimal residual ischemia in the left anterior descending and right coronary artery territories. In addition, there is suggestion of prior infarction in the left circumflex coronary artery territory. JOB# [id number] MARU/NICOLÁS ZIMMER
== END 2019-08-12 14:20 | disposition home or self-care (01) ==
LOC: ED 21:52 → 4A 08-11 00:16
PROVIDERS: ADMIT Internal Medicine Geriatric Medicine; ATTEND Internal Medicine
DX: R07.89 Other chest pain (principal); E11.65 Type 2 diabetes mellitus with hyperglycemia; I10 Essential (primary) hypertension; I25.10 Atherosclerotic heart disease of native coronary artery without angina pectoris; E78.5 Hyperlipidemia, unspecified; F17.210 Nicotine dependence, cigarettes, uncomplicated; Z95.1 Presence of aortocoronary bypass graft; Z79.82 Long term (current) use of aspirin; Z79.02 Long term (current) use of antithrombotics/antiplatelets
CPT/HCPCS: 36415; 71045; 78452; 80048; 82962; 83036; 84484; 85025; 85610; 85730; 93005; 93010; 93017; 96372; 99284; 99406; A9270; A9502; G0378; J1644; J2785; J1815